=== PATIENT | male | born 1940 | race Caucasian/White ===

== ENCOUNTER 2023-10-27 17:05 | Inpatient (IN) | payer OTHER, SELFPAY ==
[2023-10-27 17:22] VITALS: BP 187/62
[2023-10-27 17:23] VITALS: BMI 31.8
--- NOTE | 2023-10-27 17:34 | HPS.HSE ---
Family Physician
-
Family Physician: Les Ga
Chief Complaint
-
abnormal labs
History of Present Illness
83-year-old male, followed by Dr. Ben Herrera ([facility]), was transferred to [facility] for CABG evaluation on 10/27/2023. Patient was initially admitted to [facility] on 10/22/2023 for evaluation of abnormal
labs (creatinine of 2.48 and potassium of 6.8), ordered by PCP to evaluate patient report of intermittent diarrhea x 4 weeks. Patient was diagnosed with dehydration and his home dose of losartan and Aldactone were held. An ultrasound of the kidneys
on 10/22 was negative for hydronephrosis or nephrolithiasis. Hydralazine was given for hypertension and patient had severe reaction including chest pain and flushing. BNP was 204 and troponin negative. A TTE performed on 10/24/2023 reported normal
ejection fraction and no significant valvular pathology. A Lexiscan conducted on 10/24 reported inferior apical ischemia and patient underwent a left heart cath on 10/26/[address] kulwinder Ndiaye. 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
patient was transferred to [facility]. Patient denies any similar chest pressure symptoms in the past. Creatinine on 10/26 was 1.68 and potassium was 5.2. Diarrhea subsided during his hospitalization. Patient recounts undergoing routine
colonoscopy and no cancerous lesions identified in the past. Patient denies history of kidney disease (although baseline creatinine is documented at 1.5) and losartan/Aldactone were not new medications.
Left Heart Cath (R radial) on 10/26/23:
Left main: 20% mid-distal
LAD: 70% ostial, proximal and mid
D1: 20-30% proximal�mid
Circumflex: 10-20% proximal�mid
OM1: atretic caliber
OM 2: 75% ostial and proximal
OM 3: 10-20% ostial
LPDA: 70-80% ostial�proximal
LPL 1 and 2 and 3: Atretic caliber
Torturous subclavian
TTE 10/24/23:
LVEF: 60%
Normal RV systolic function
No mitral regurgitation, tricuspid regurgitation or aortic stenosis. Mild aortic insufficiency. Aortic root is normal in size with no pericardial effusion
Medical History
Past Medical History
Past Medical History: Reports Cancer (Prostate cancer s/p radiation 5 years ago), HTN, Hypercholesterolemia and Other (Chronic kidney disease; osteoarthritis; cataracts; obesity (BMI 31.8))
Past Surgical History: Reports Orthopedic (Left total knee replacement) and Other (B/L cataract extraction)
Social History
Tobacco: Non-smoker
Alcohol: Occasional
Drug: None
Personal:
Living: With Family
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
Family History
Family History: Not pertinent
Allergies / Home Medications
Allergies reflects when Allergies were last updated in [facility].
Home Medications with original date entered in [facility]
Allergy/Medication List:
Hydralazine-chest pressure, flushing
IV contrast-hives
Home Medications
�Medication �Instructions �Recorded
amlodipine 10 mg tablet 10 mg PO DAILY 10/27/23
aspirin 81 mg capsule 81 mg PO DAILY 10/27/23
carvedilol 25 mg tablet 25 mg PO BID 10/27/23
losartan 100 mg tablet 100 mg PO DAILY 10/27/23
rosuvastatin 10 mg tablet 10 mg PO DAILY 10/27/23
spironolactone 25 mg tablet 25 mg PO DAILY 10/27/23
Review of Systems
-
History Source: Patient
Constitutional: Reports No Symptoms
EENT: Reports No Symptoms
Respiratory: Reports No Symptoms
Cardiac: Reports See HPI
Abdomen/GI: Reports See HPI
: Reports No Symptoms
Musculoskeletal: Reports No Symptoms
Skin: Reports No Symptoms
Neurological: Reports No Symptoms
Endocrine: Reports No Symptoms
Hematologic/Lymphatic: Reports No Symptoms
Psych: Reports No Symptoms
Physical Exam
Vital Signs
Vital Signs
Temp Resp Pulse Ox
98.6 F 20 97
10/27/23 17:22 10/27/23 17:22 10/27/23 17:22
Physical Exam
General: Well Developed, Well Nourished, No Apparent Distress, Comfortable, Conversant and Obese
HEENT: NormoCephalic, Anicteric, Moist mucous membranes, Atraumatic, PERRLA, [place] Conjunctivae, Ears Appear Normal and Neck Nontender
Respiratory: Clear
Cardiac: S1/S2 and Regular Rhythm
Breast: N/A
GI: Soft, Non Tender, Non Distended, Normal Bowel Sounds and No Hepatosplenomegaly
Rectal: Deferred by Provider
Genito-urinary: Deferred by me
Musculoskeletal: No Clubbing, No Cyanosis, Edema, Left Lower Extremity (trace) and Edema, Right Lower Extremity (trace)
Skin: Warm and Dry
Neuro: AO x 3, No Motor Deficits and Nonfocal/grossly intact
Hematologic/Lymphatic: No Lymphadenopathy
Psych: Calm and Intact Judgment/Insight
Laboratory Results
-
labs from [facility] reviewed
Data Reviewed
-
Medical Tests (Nuc Med, Echo, EKG etc): Report Reviewed by me and Discussed with Physician
Lab Data: Labs Reviewed by me and Discussed with Physician
Old Records: Reviewed
Impression/Plan
-
IMPRESSION: 83-year-old male with multivessel coronary disease, preserved ejection fraction, CUCO on CKD, and hyperkalemia
PLAN:
Left heart cath disc loaded in CV synapse
Routine labs, ECG, chest x-ray, Carotid US, non-contrast CT chest, type and screen, A1c, and MRSA swab ordered
Dr. Anderson to review imaging and discuss timing of CABG with patient
Patient did not receive oral anticoagulants or DAPT therapy at [facility]
Continue to hold Aldactone and losartan
--- NOTE | 2023-10-27 17:46 | PTCARENOTE ---
Received pt to room from transport. Pt AAO x 3 slightly irritated from long transport ride. . SR on monitor. Room air 96%. Lungs clear bilaterally. Abdomen soft and non tender, states no issues voiding. Pulses palpable. No edema appreciated.
# 20 P placed in LT AC. Admission completed. CT ANIMAL CONTROL SPECIALIST in consulting with patient. Call jean w/in reach.
[2023-10-27 18:47] VITALS: BP 158/62
[2023-10-27 20:03] VITALS: BP 182/89
[2023-10-27] MEDS: COREG 25 MG PO (20:07)
[2023-10-27] MEDS: TYLENOL PO (20:09)
[2023-10-27 20:51] VITALS: BP 152/50
[2023-10-27 23:06] VITALS: BP 122/61
--- NOTE | 2023-10-28 00:53 | W.PN.CT ---
Today's Communication / Plan
-
-no significant issues overnight
-no drips. Denies any CP, SOB or any GI sxs
-sinus bradycardia down for high 30s-40s noted during sleep (on Coreg 25 bid)
-mild LE edema since started Norvasc for HTN
-has allergy to iv dye and hydralazine (treated at [facility] wtih Bendadryl and Medrol for anaphylactic reaction)
-follow K and Cr
-diarrhea has resolved, denies any gi issues currently
-evaluation for CABG is ongoing
Assessment / Plan
-
-mv-CAD- transferred from [facility] on 10/27/23 for evaluation for CABG. Currently, denies any CP or any sxs
Left Heart Cath (R radial) on 10/26/23:
Left main: 20% mid-distal
LAD: 70% ostial, proximal and mid
D1: 20-30% proximal�mid
: 10-20% proximal�mid
OM1: atretic caliber
OM 2: 75% ostial and proximal
OM 3: 10-20% ostial
LPDA: 70-80% ostial�proximal
LPL 1 and 2 and 3: Atretic caliber
Torturous subclavian
-recent CUCO/hyperkalemia in the setting of dehydration/ diarrhea for 3-4 weeks (?+ C.Diff noted in [facility] records). Diarrhea spontaneously resolved 1 week ago. CUCO/K improving
-An ultrasound of the kidneys on 10/22 was negative for hydronephrosis or nephrolithiasis.
-Losartan and Aldactone stopped
-Creatinine on 10/26 was 1.68 and potassium was 5.2-follow
-anaphylactic reaction to Hydralazine at [facility] - treated with iv Bendryl and Medrol pack
-allergy to iv dye
-HTN/HLD- on ASA, Coreg, Norvasc, and Crestor
-normal EF
TTE 10/24/23:
LVEF: 60%
Normal RV systolic function
No mitral regurgitation, tricuspid regurgitation or aortic stenosis. Mild aortic insufficiency. Aortic root is normal in size with no pericardial effusion
-prostate CA - s/p XRT
Discussed patient care with: Nursing and Care Team
Subjective
-
Date of Service: October 28, 2023
Objective Data
Vital Signs
Vital Signs
Temp Pulse Resp BP Pulse Ox
97.9 F 62 18 182/89 100
10/27/23 23:02 10/27/23 20:07 10/27/23 23:02 10/27/23 20:07 10/27/23 23:02
CT Intake/Output/Weight
10/27/23 10/27/23 10/28/23
06:59 18:59 06:59
Intake Total 240 / 240
Balance 240 / 240
SaO2: 100
Physical Exam
-
General: Awake and AOx3
Cardiovascular: Regular rate & rhythm, No Murmurs and No Rub
Respiratory: Clear
Extremities: Edema +1 (2+ DP b/l)
Data Reviewed
-
Lab Results: Results Reviewed
Medications: Active Meds Reviewed
ECG: Report Reviewed and Image Reviewed
[2023-10-28] MEDS: TYLENOL PO ×4 (03:56→23:41)
[2023-10-28 04:00] VITALS: BP 159/58; BMI 31.5
[2023-10-28 06:00] VITALS: BMI 31.5
[2023-10-28 06:25] LABS: % Basophils 0.2 % (0-2); % Eosinophils 1.6 % (0-6); % Immature Granulocytes 0.6 % (0-0.5); % Lymphocytes 11.9 % (20.5-51.1); % Monocytes 7.1 % (1.7-9.3); % Neutrophils 78.6 % (42.2-75.2); Absolute Eosinophils 0.2 10^3/uL (0-0.7); Absolute Immature Granulocytes 0.1 10^3/uL (0-0.05); Absolute Lymphocytes 1.4 10^3/uL (1.2-3.4); Absolute Monocytes 0.9 10^3/uL (0.1-0.6); Absolute Neutrophils 9.5 10^3/uL (1.4-6.5); Hematocrit 28.6 % (39.0-52.0); Hemoglobin 9.8 g/dL (13.0-18.0); Mean Corp Hgb Conc. 34.3 g/dL (33.0-37.0); Mean Corpuscular Hgb 30.9 pg (27.0-31.0); Mean Corpuscular Volume 90.2 fL (80.0-94.0); Mean Platelet Volume 10.9 fL (7.4-10.4); Nucleated Red Blood Cells % 0 % (-); Platelet Count 170 10^3/uL (130-400); Red Blood Cell Count 3.17 10^6/uL (4.70-6.10); Red Cell Dist. Width 12.7 % (11.5-14.5)
[2023-10-28 06:26] LABS: INR 1.17; PT 14.9 Sec (11.4-14.6)
[2023-10-28 06:28] LABS: ALT (SGPT) 21 U/L (0-50); AST (SGOT) 22 U/L (17-59); Albumin 3.2 g/dl (3.5-5.0); Alkaline Phosphatase 82 U/L (38-126); Blood Urea Nitrogen 42 mg/dl (9-20); Calcium 8.6 mg/dl (8.4-10.2); Carbon Dioxide 20 mmol/L (22-30); Chloride 109 mmol/L (98-107); Estimated Creatinine Clearance 42 ml/min; Glucose 96 mg/dl (70-99); Magnesium 1.6 mg/dl (1.6-2.3); Potassium 4.7 mmol/L (3.5-5.1); Sodium 134 mmol/L (135-145); Total Bilirubin 0.3 mg/dl (0.2-1.3); Total Protein 5.1 g/dl (6.3-8.2); eGFR 42.75
[2023-10-28 06:57] LABS: TSH 2.69 uIU/ml (0.47-4.68)
[2023-10-28 08:28] VITALS: BP 178/72
[2023-10-28] MEDS: ASPIR LOW (ENTERIC COATED) 81 MG PO (08:30)
[2023-10-28] MEDS: TYLENOL 650 MG PO ×3 (08:30→16:12)
[2023-10-28] MEDS: COREG 25 MG PO ×2 (08:31→19:30)
[2023-10-28] MEDS: CRESTOR 10 MG PO (08:31)
[2023-10-28] MEDS: NORVASC 10 MG PO (08:31)
[2023-10-28 09:25] LABS: Glycohemoglobin (HgbA1c) 5.8 % (4.0-5.6)
--- NOTE | 2023-10-28 09:30 | CON.CAR ---
Addendum entered and electronically signed by Bryce Amaya MD 10/28/23 10:12:
I saw and examined the patient.
The HRIS MANAGER or PA's note was reviewed and I agree with the note.
83-year-old male history of hypertension, hypercholesterolemia, CKD and prostate cancer who noted to have multivessel coronary disease and is transferred for CABG. Patient being assessed by Dr. Anderson/CT surgery. Patient reports that he had
intermittent diarrhea saw his PCP and was noted to have abnormal labs including CUCO. Patient suspected to be volume depleted. Due to issues with hypertension he had IV hydralazine and appeared to have an allergic reaction. He says he felt awful
felt that everything was swelling had some issues breathing and some chest discomfort. This prompted cardiac evaluation including an abnormal Lexiscan followed by catheterization which reveals severe multivessel coronary artery disease. Patient
has had no complaints of chest discomfort since hospitalization at [place]. He states he was not having any exertional chest discomfort at home he would have some shortness of breath after walking up a flight of stairs but had not noticed an
acute change. No orthopnea or lower extremity edema.
-Continue evaluation for CABG by CT surgery.
-Continue current medical therapy for hypertension.
-If recurrent chest discomfort would and IV nitro. Also could add nitrates if needed for additional blood pressure support.
-Monitor renal function creatinine 1.6.
-Monitor anemia.
Original Note:
Consultation
Consultation Request
Date/Time Consultation Requested: 10/27/23 6:50p
Date/Time Consultation Performed: 10/28/23 9a
Requesting Provider: PRINCE Jett
Performing Provider: PRINCE Lay for Dr. Amaya
Reason for Consultation: CABG evaluation, multivessel CAD on cath
Medical History
-
Chief Complaint: multivessel CAD on cath, transfer from [facility]
History of Present Illness:
Mr. Sue is an 83 yo male (known to Dr. Herrera at [facility]) with HTN, prostate cancer s/p XRT 5 years ago, HLD, CKD, OA and obesity, who was transferred to for CABG evaluation. He was admitted to [facility] 10/22/23 with intermittent diarrhea x 4 weeks,
dehydration and creatinine 2.48 and potassium 6.8. His outpatient Losartan and Aldactone were held. He received hydralazine for HTN while inpatient and had a severe allergic reaction with chest tightness, SOB and flushing. Therefore he had
cardiac evaluation with echo 10/24/23 with normal LVEF, no valve disease. Lexiscan 10/25/23: inferior, apical ischemia, then cath 10/26/23 [facility] Dr. Ndiaye showed multivessel CAD and he was transferred to for CABG evaluation. He denies any cardiac
symptoms now or previously.
Past Medical History
Past Medical History: Other (as above)
Past Surgical History: Other (left TKA, b/l cataracts)
Social History
Tobacco: Non-Smoker
Alcohol: Occasional (1 drink a month)
Drug: None
Personal:
Living: With Family
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
Family History
Family History: Reviewed & Not Pertinent
Allergies / Home Medications
Allergy/AdvReac Type Severity Reaction Status Date / Time
hydralazine Allergy Severe Anaphylaxis Verified 10/27/23 17:20
Iodinated Contrast Media Allergy Hives Verified 10/27/23 19:23
�Medication �Instructions �Recorded �Confirmed �Type
amlodipine 10 mg tablet 10 mg PO DAILY Blood Pressure 10/27/23 10/27/23 History
aspirin 81 mg capsule 81 mg PO DAILY Blood Clot 10/27/23 10/27/23 History
Prevention/Tx
carvedilol 25 mg tablet 25 mg PO BID Blood Pressure 10/27/23 10/27/23 History
losartan 100 mg tablet 100 mg PO DAILY Blood Pressure 10/27/23 10/27/23 History
rosuvastatin 10 mg tablet 10 mg PO DAILY High Cholesterol 10/27/23 10/27/23 History
spironolactone 25 mg tablet 25 mg PO DAILY Fluid 10/27/23 10/27/23 History
Retention/Swelling
Review of Systems
-
History Source: Patient
All other systems: Negative unless noted
Physical Exam
Vital Signs
Temp Pulse Resp BP Pulse Ox
98.4 F 67 18 178/72 95
10/28/23 08:27 10/28/23 08:31 10/28/23 04:00 10/28/23 08:31 10/28/23 08:27
Lab Results
10/28/23 05:58
10/28/23 05:58
Physical Exam
General: Well Developed, Well Nourished and No Apparent Distress
HEENT: Normocephalic, Anicteric and Moist Mucous Membranes
Respiratory: Clear and Non Labored Respirations
Cardiac: S1/S2 and Regular Rhythm
Breast: Deferred by me
GI: Soft, Non Tender, Non Distended and Normal Bowel Sounds
Rectal: Deferred by Provider
Genito-urinary: No Costovertebral Tender
Musculoskeletal: No Clubbing, No Cyanosis and No Edema
Skin: Warm and Dry
Neuro: AO x 3
Hematologic/Lymphatic: No Lymphadenopathy
Psych: Calm
Impression / Plan
-
CAD - multivessel disease on cath 10/26/23.
- asymptomatic.
- evaluation by CT surgery for CABG.
- continue ASA.
HTN - stable.
- on Coreg, Norvasc.
- holding Losartan and Aldactone for now.
- had severe allergic reaction to Hydralazine while at [facility]
HLD - on Crestor.
- check lipid profile.
CKD - creatinine 1.6 today.
- previously 2.48 at [facility] due to diarrhea/dehydration.
- holding Losartan and Aldactone.
- seems baseline creatinine is 1.5.
Obesity - chronic.
Data Reviewed
-
EKG: Tracing Personally Visualized and interpreted (sinus renu with blocked PACs 55 bpm)
Medical Tests (Nuc Med, Echo etc): Report Reviewed by me (echo 10/24/23 normal LVEF, no valve disease) and Other (Lexiscan 10/25/23: inferior apical ischemia. cath 10/26/23 [facility] Dr. Ndiaye: multivessel CAD)
Labs: Labs Reviewed by me
Old Records: Reviewed
--- NOTE | 2023-10-28 09:43 | PTCARENOTE ---
Assumed care of pt from night RN. Pt received awake and alert, Ox3. VSS, CM shows SB with occ PAC's. EKG repeated this am at Dr. Amaya's request, showed SB. Right wrist dsg CDI with normal CMS throughout limb. Pt being worked up for CVOR. He
denies any pain or discomfort, will continue to monitor closely.
--- NOTE | 2023-10-28 10:44 | W.PN.UPDATE ---
Update Note
Progress Note Update
CARDIAC SURGERY ATTENDING:
Mr. Carter Sue is a very pleasant 83-year-old gentleman who came to us as a transfer from [facility] for consideration for surgical coronary revascularization. He initially presented to that institution on October 22, 2023 secondary to diarrhea times
several weeks leading to dehydration and CUCO with hyperkalemia. He was being managed for that, and required a dose of hydralazine to address hypertension. He apparently had an adverse reaction to this hydralazine which led to hypotension and chest
pain. That prompted cardiac workup. An echocardiogram demonstrated no significant valvular heart disease and an LVEF of 60%. A stress demonstrated potential cardiac ischemia leading to a left heart catheterization. This left heart
catheterization demonstrated multivessel CAD and a left dominant coronary pattern.
I believe he will benefit from surgical coronary revascularization. I anticipate ANGIE to LAD, greater saphenous vein to OM 2, greater saphenous vein to upper branch of OM 3, and potential greater saphenous vein to L PDA (requires intraoperative
assessment). I have tentatively scheduled him for the OR this coming 10/31/2023.
I had a long conversation with Mr. Sue at bedside. We discussed his pathology, the proposed operative interventions, the associated periprocedural risks (, stroke, TX, arrhythmia, PNA, CUCO/F [elevated risk given recent CUCO] with potential
need for HD, bleeding, and infection), the expected in-hospital postprocedural course, and expected outpatient recovery. All questions were answered to the best of my abilities. The patient is agreeable to proceed.
Thank you for the opportunity to participate in the care of this kind gentleman.
Brandon Anderson MD
[phone]
--- NOTE | 2023-10-28 12:39 | CM ---
Reviewed chart. Met with Mr. Sue to review discharge plans. He states prior to admission he resides with his spouse in a two story home with two steps to enter. He states he has a full flight of steps to get to bedroom. He states he has a full
bathroom on each level. He states prior to admission he was independent with ambulation and adls. He states he currently is not using any DME. He states he has a rolling walker from knee surgery. He states he has a prescription plan. He states
his spouse will be home to assist in his care if needed. Medical work-up in progress. The discharge plan is to return home with his spouse and a home visit by the Cardiothoracic Transitional Care Nurse when medically stable.
We reviewed pre-op and post-op routines. Briefly reviewed the soap instructions. We also reviewed restrictions including sternal precautions and driving restrictions. Gave him the Cardiothoracic Surgery Educational Booklet. We discussed a home
visit by the Cardiothoracic Transitional Care Nurse. He is agreeable to a home visit. The plan is for CABG on Tuesday10/31/23.
[2023-10-28 12:43] VITALS: BP 153/57
[2023-10-28 13:09] LABS: Urine Albumin Negative (Neg - Trace); Urine Bilirubin Negative (Negative); Urine Character Clear (Clear); Urine Color Yellow; Urine Glucose Negative (Negative); Urine Ketone Negative (Negative); Urine Leukocyte Negative (Negative); Urine Nitrite Negative (Negative); Urine Occult Blood Negative (Negative); Urine Specific Gravity 1.015 (<1.030); Urine Urobilinogen Negative (Neg - 1+)
[2023-10-28 15:48] VITALS: BP 128/53
[2023-10-28 19:17] VITALS: BP 166/54
[2023-10-28 22:45] VITALS: BP 121/55
[2023-10-29] VITALS (7 sets, daily range): BP systolic 118–171; BP diastolic 48–73; BMI 31.5
--- NOTE | 2023-10-29 04:00 | W.PN.CT ---
Today's Communication / Plan
-
-no issues overnight, no complaints
-some bradycardia during sleep 40s-50s
-anemia preop - hg 9.8
-Cr trending up - 1.6 on 10/27 and 1.7 today - follow Cr and K
-current meds (Coreg, ASA, Crestor, Norvasc)
-tentatively scheduled for CABG with Dr. Anderson this coming 10/31/2023.
Assessment / Plan
-
-mv-CAD- transferred from [facility] on 10/27/23 for evaluation for CABG. Currently, denies any CP or any sxs
Left Heart Cath (R radial) on 10/26/23:
Left main: 20% mid-distal
LAD: 70% ostial, proximal and mid
D1: 20-30% proximal�mid
: 10-20% proximal�mid
OM1: atretic caliber
OM 2: 75% ostial and proximal
OM 3: 10-20% ostial
LPDA: 70-80% ostial�proximal
LPL 1 and 2 and 3: Atretic caliber
Torturous subclavian
-recent CUCO/hyperkalemia in the setting of dehydration/ diarrhea for 3-4 weeks (?+ C.Diff noted in [facility] records). Diarrhea spontaneously resolved 1 week ago. CUCO/K improving
-An ultrasound of the kidneys on 10/22 was negative for hydronephrosis or nephrolithiasis.
-Losartan and Aldactone stopped
-Creatinine on 10/26 was 1.68 and potassium was 5.2-follow
-anaphylactic reaction to Hydralazine at [facility] - treated with iv Bendryl and Medrol pack
-allergy to iv dye
-HTN/HLD- on ASA, Coreg, Norvasc, and Crestor
-normal EF
TTE 10/24/23:
LVEF: 60%
Normal RV systolic function
No mitral regurgitation, tricuspid regurgitation or aortic stenosis. Mild aortic insufficiency. Aortic root is normal in size with no pericardial effusion
-prostate CA - s/p XRT
-Carotid US 10/28/23:
No significant plaque identified bilaterally. Peak systolic velocity measurements and IC/CC ratio consistent with less than 50% stenosis bilaterally. High resistance waveforms (low end-diastolic velocity) were demonstrated bilaterally which may
suggest a more distal stenosis.
-Chest CT 10/28/23:
Thoracic aorta normal in caliber with calcific atherosclerotic changes of the thoracic aortic arch and descending thoracic aorta.
Coronary artery calcifications.
-CXR 10/28/23:
no acute dz
Discussed patient care with: Nursing and Care Team
Subjective
-
Date of Service: October 29, 2023
Objective Data
-
PT 14.9 Sec (11.4-14.6) H 10/28/23 05:58
INR 1.17 10/28/23 05:58
APTT 27.0 Sec (23.4-35.0) 10/28/23 05:58
Vital Signs
Vital Signs
Temp Pulse Resp BP Pulse Ox
98.3 F 51 16 121/55 95
10/29/23 03:23 10/28/23 22:45 10/29/23 03:23 10/28/23 22:45 10/29/23 03:[address] Intake/Output/Weight
10/28/23 10/28/23 10/29/23
06:59 18:59 06:59
Intake Total 240 / 240
Output Total 700 / 700
Balance -460 / -460
SaO2: 95
Physical Exam
-
General: Awake
Cardiovascular: Regular rate & rhythm, No Murmurs and No Rub
Respiratory: Clear
Extremities: Edema +1
Data Reviewed
-
Lab Results: Results Reviewed
Medications: Active Meds Reviewed
Chest X-Ray: Report Reviewed and Image Reviewed
ECG: Report Reviewed and Image Reviewed
[2023-10-29 04:45] LABS: Hematocrit 27.1 % (39.0-52.0); Hemoglobin 9.3 g/dL (13.0-18.0); Mean Corp Hgb Conc. 34.3 g/dL (33.0-37.0); Mean Corpuscular Hgb 29.8 pg (27.0-31.0); Mean Corpuscular Volume 86.9 fL (80.0-94.0); Mean Platelet Volume 10.5 fL (7.4-10.4); Platelet Count 179 10^3/uL (130-400); Red Blood Cell Count 3.12 10^6/uL (4.70-6.10); Red Cell Dist. Width 12.8 % (11.5-14.5); White Blood Cell Count 8.1 10^3/uL (4.8-10.8)
[2023-10-29 05:16] LABS: Blood Urea Nitrogen 46 mg/dl (9-20); Calcium 8.5 mg/dl (8.4-10.2); Carbon Dioxide 19 mmol/L (22-30); Chloride 107 mmol/L (98-107); Estimated Creatinine Clearance 40 ml/min; Glucose 94 mg/dl (70-99); Magnesium 1.5 mg/dl (1.6-2.3); Potassium 4.8 mmol/L (3.5-5.1); Sodium 133 mmol/L (135-145); eGFR 39.75
[2023-10-29] MEDS: TYLENOL PO ×6 (05:42→23:23)
--- NOTE | 2023-10-29 06:27 | PTCARENOTE ---
Pt. had no complaints of chest pain/discomfort overnight, VSS, NSR-SB on the monitor. Pt. independent and ambulatory in room, very pleasant. Sleeping most of the night.
[2023-10-29] MEDS: NORVASC 10 MG PO (07:48)
[2023-10-29] MEDS: COREG 25 MG PO ×2 (07:48→20:14)
[2023-10-29] MEDS: CRESTOR 10 MG PO (07:48)
[2023-10-29] MEDS: ASPIR LOW (ENTERIC COATED) 81 MG PO (07:48)
--- NOTE | 2023-10-29 08:00 | PTCARENOTE ---
Received patient for 7a-7p shift. Pt AAOx3, without complaints. 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 Medications administered as ordered. Pt verbalized understanding of fall precautions, demonstrates use of call pena. Will continue to monitor.
--- NOTE | 2023-10-29 08:15 | W.PN.UPDATE ---
Update Note
Progress Note Update
STS RISK SCORE
Procedure Type:�Isolated CABG
PERIOPERATIVE OUTCOME ESTIMATE %
Operative Mortality 2.66%
Morbidity & Mortality 11%
Stroke 0.727%
Renal Failure 4.44%
Reoperation 2.53%
Prolonged Ventilation 5.09%
Deep Sternal Wound Infection 0.121%
Long Hospital Stay (>14 days) 8.34%
Short Hospital Stay (<6 days)* 24.8%
Clinical Summary
Planned Surgery: Isolated CABG, Urgent, First cardiovascular surgery
Demographics: 83 year old, male, 100.6kg, 178cm, BMI: 31.8 kg/m�
Lab Values: Creatinine: 1.7 mg/dL, Hematocrit: 27.1%, WBC Count: 8.1 10�/�L, Platelet Count: 657564 cells/�L
Substance Abuse: Never smoker, Alcohol use: <=1 drink/week
Risk Factors / Comorbidities: Hypertension
Cardiac Status: NYHA Class II, Ejection Fraction = 60%
Coronary Artery Disease: 2 vessels diseased, Proximal LAD Stenosis >=70%, Unstable Angina
Valve Disease: Mild AR
--- NOTE | 2023-10-29 10:04 | W.PN.CD ---
Today's Communication / Plan
-
Overall stable continue current therapy.
Monitor hypertension
Monitor renal function
CT surgery assessment and progress
Patient has some mild edema he states he has had this with amlodipine in the past. Unclear if he had been off of it and then restarted during admit at [facility]. Continue to monitor edema
Impression / Plan
-
CAD - multivessel disease on cath 10/26/23.
- asymptomatic.
- evaluation by CT surgery for CABG.
- continue ASA.
HTN - stable.
- on Coreg, Norvasc.
- holding Losartan and Aldactone for now.
- had severe allergic reaction to Hydralazine while at [facility]
-Patient with mild lower extremity edema. He says he has had this with amlodipine in the past. Continue to monitor.
HLD - on Crestor.
- check lipid profile.
CKD - creatinine 1.7 improved since admit at [facility]. Continue to monitor.
- previously 2.48 at [facility] due to diarrhea/dehydration.
- holding Losartan and Aldactone.
- seems baseline creatinine is 1.5.
Obesity - chronic.
Physical Exam
Vital Signs/Labs
Vital Signs
Temp Pulse Resp BP Pulse Ox
98.5 F 60 18 118/58 95
10/29/23 07:46 10/29/23 08:00 10/29/23 07:46 10/29/23 07:49 10/29/23 07:46
10/28/23 10/29/23 10/30/23
06:59 06:59 06:59
Actual Weight 99.5 kg 99.5 kg
10/29/23 04:35
10/29/23 04:35
PT 14.9 Sec (11.4-14.6) H 10/28/23 05:58
INR 1.17 10/28/23 05:58
APTT 27.0 Sec (23.4-35.0) 10/28/23 05:58
Magnesium 1.5 mg/dl (1.6-2.3) L 10/29/23 04:35
TSH 2.69 uIU/ml (0.47-4.68) 10/28/23 05:58
Physical Exam
Constitutional: No acute distress
Cardiovascular: Rhythm & rate is regular
Respiratory: Respiratory effort normal
GI: Soft
Neuro/Psych: Alert
Data Reviewed
-
Date of Service: October 29, 2023
Medical Tests (PFT, Pathology etc): Discussed with Patient
[2023-10-29] MEDS: MAGNESIUM OXIDE 500 MG PO ×2 (10:20→20:14)
[2023-10-29 12:06] LABS: Reticulocyte Count 2.6 % (0.4-2.8)
[2023-10-29 13:54] LABS: Folate 7.8 ng/ml (2.76-20); Vitamin B12 627 pg/ml (239-931)
[2023-10-30] VITALS (9 sets, daily range): BP systolic 122–160; BP diastolic 55–63; BMI 31.3
[2023-10-30] MEDS: TYLENOL PO ×5 (04:12→21:22)
[2023-10-30 04:49] LABS: Hematocrit 27.7 % (39.0-52.0); Hemoglobin 9.6 g/dL (13.0-18.0); Mean Corp Hgb Conc. 34.7 g/dL (33.0-37.0); Mean Corpuscular Hgb 29.8 pg (27.0-31.0); Mean Platelet Volume 10.3 fL (7.4-10.4); Platelet Count 169 10^3/uL (130-400); Red Blood Cell Count 3.22 10^6/uL (4.70-6.10); Red Cell Dist. Width 12.6 % (11.5-14.5); White Blood Cell Count 8.4 10^3/uL (4.8-10.8)
[2023-10-30 05:03] LABS: Blood Urea Nitrogen 43 mg/dl (9-20); Calcium 8.5 mg/dl (8.4-10.2); Carbon Dioxide 21 mmol/L (22-30); Chloride 108 mmol/L (98-107); Estimated Creatinine Clearance 45 ml/min; Glucose 101 mg/dl (70-99); Magnesium 1.6 mg/dl (1.6-2.3); Potassium 4.7 mmol/L (3.5-5.1); Sodium 133 mmol/L (135-145); eGFR 46.19
[2023-10-30 05:11] LABS: Total Iron Binding Capacity 273 ug/dl (261-462)
--- NOTE | 2023-10-30 05:52 | W.PN.CT ---
Today's Communication / Plan
-
-no issues overnight, no complaints
-bradycardia during sleep 40s-50s
-anemia preop - hg 9.6, stable
-Cr trending down - 1.5, 1.7 yesterday - follow Cr and K
-current meds (Coreg, ASA, Crestor, Norvasc)
-tentatively scheduled for CABG with Dr. Anderson this coming 10/31/2023.
Assessment / Plan
-
-mv-CAD- transferred from [facility] on 10/27/23 for evaluation for CABG. Currently, denies any CP or any sxs
Left Heart Cath (R radial) on 10/26/23:
Left main: 20% mid-distal
LAD: 70% ostial, proximal and mid
D1: 20-30% proximal�mid
: 10-20% proximal�mid
OM1: atretic caliber
OM 2: 75% ostial and proximal
OM 3: 10-20% ostial
LPDA: 70-80% ostial�proximal
LPL 1 and 2 and 3: Atretic caliber
Torturous subclavian
-recent CUCO/hyperkalemia in the setting of dehydration/ diarrhea for 3-4 weeks (?+ C.Diff noted in [facility] records). Diarrhea spontaneously resolved 1 week ago. CUCO/K improving
-An ultrasound of the kidneys on 10/22 was negative for hydronephrosis or nephrolithiasis.
-Losartan and Aldactone stopped
-Creatinine on 10/26 was 1.68 and potassium was 5.2-follow
-anaphylactic reaction to Hydralazine at [facility] - treated with iv Bendryl and Medrol pack
-allergy to iv dye
-HTN/HLD- on ASA, Coreg, Norvasc, and Crestor
-normal EF
TTE 10/24/23:
LVEF: 60%
Normal RV systolic function
No mitral regurgitation, tricuspid regurgitation or aortic stenosis. Mild aortic insufficiency. Aortic root is normal in size with no pericardial effusion
-prostate CA - s/p XRT
-Carotid US 10/28/23:
No significant plaque identified bilaterally. Peak systolic velocity measurements and IC/CC ratio consistent with less than 50% stenosis bilaterally. High resistance waveforms (low end-diastolic velocity) were demonstrated bilaterally which may
suggest a more distal stenosis.
-Chest CT 10/28/23:
Thoracic aorta normal in caliber with calcific atherosclerotic changes of the thoracic aortic arch and descending thoracic aorta.
Coronary artery calcifications.
-CXR 10/28/23:
no acute dz
Subjective
-
Date of Service: October 30, 2023
Objective Data
-
Lab Results
10/30/23 04:24
10/30/23 04:23
PT 14.9 Sec (11.4-14.6) H 10/28/23 05:58
INR 1.17 10/28/23 05:58
APTT 27.0 Sec (23.4-35.0) 10/28/23 05:58
Vital Signs
Vital Signs
Temp Pulse Resp BP Pulse Ox
98.1 F 56 18 154/58 97
10/30/23 04:03 10/30/23 04:05 10/30/23 04:03 10/30/23 04:05 10/30/23 04:03
CT Intake/Output/Weight
10/29/23 10/29/23 10/30/23
06:59 18:59 06:59
Intake Total 480 / 480 360 / 840 480 / 840
Balance 480 / 480 360 / 840 480 / 840
SaO2: 97
Physical Exam
-
General: AOx3
Cardiovascular: Irregular rate & rhythm (bradycardic but regular)
Respiratory: Clear
Extremities: Edema +1
[2023-10-30] MEDS: NORVASC 10 MG PO (08:48)
[2023-10-30] MEDS: COREG 25 MG PO ×2 (08:49→20:14)
[2023-10-30] MEDS: CRESTOR 10 MG PO (08:49)
[2023-10-30] MEDS: ASPIR LOW (ENTERIC COATED) 81 MG PO (08:49)
[2023-10-30] MEDS: MAGNESIUM OXIDE 500 MG PO ×2 (08:49→20:14)
--- NOTE | 2023-10-30 08:57 | W.PN.CD ---
Today's Communication / Plan
-
Overall stable with no evidence of angina continue CT surgery evaluation.
Reduction of amlodipine due to edema may ultimately need to stop. Sounds as if he has had issues before however ARB also being held. If additional blood pressure control required then nitrates can be added preop.
Impression / Plan
-
CAD - multivessel disease on cath 10/26/23.
- asymptomatic.
- evaluation by CT surgery for CABG.
- continue ASA.
HTN - stable.
- on Coreg, Norvasc.
- holding Losartan and Aldactone for now.
- had severe allergic reaction to Hydralazine while at [facility]
-Patient with mild lower extremity edema. It sounds as if he was on amlodipine in the past it had been stopped and then resumed during hospitalization at [facility]. He does have mild lower extremity edema. Of note he had an allergic reaction
to hydralazine. Will reduce amlodipine to 5 mg a day will need to monitor blood pressures. If blood pressure increases preoperatively can add nitrates. Ultimately post operatively would try to resume ARB if renal function stable and would
consider use of Diovan or Benicar rather than losartan which may give a little more blood pressure control.
.
HLD - on Crestor.
- check lipid profile.
CKD - creatinine 1.7 improved since admit at H. Continue to monitor.
- previously 2.48 at [facility] due to diarrhea/dehydration.
- holding Losartan and Aldactone.
- seems baseline creatinine is 1.5.
Obesity - chronic.
Physical Exam
Vital Signs/Labs
Vital Signs
Temp Pulse Resp BP Pulse Ox
98.2 F 60 16 137/57 98
10/30/23 08:01 10/30/23 08:49 10/30/23 08:01 10/30/23 08:49 10/30/23 08:01
10/29/23 10/30/23 10/31/23
06:59 06:59 06:59
Actual Weight 99.1 kg
10/30/23 04:24
10/30/23 04:23
PT 14.9 Sec (11.4-14.6) H 10/28/23 05:58
INR 1.17 10/28/23 05:58
APTT 27.0 Sec (23.4-35.0) 10/28/23 05:58
Magnesium 1.6 mg/dl (1.6-2.3) 10/30/23 04:23
TSH 2.69 uIU/ml (0.47-4.68) 10/28/23 05:58
Physical Exam
Constitutional: No acute distress
EENT: Anicteric
Cardiovascular: Rhythm & rate is regular
Respiratory: Respiratory effort normal
GI: Soft
Neuro/Psych: Alert
Data Reviewed
-
Date of Service: October 30, 2023
Medical Decision Making: Reviewed Test Results
Medical Tests (PFT, Pathology etc): Report Reviewed by me
Labs: Labs Reviewed by me
--- NOTE | 2023-10-30 10:40 | PTCARENOTE ---
received this pleasant patient this am, monitor shows NSR/SB, VSS. blood work obtained and sent to lab. reviewed plan of care, patient despot have questions at this time.
--- NOTE | 2023-10-30 13:13 | W.PN.UPDATE ---
Update Note
Progress Note Update
PRE-OP STUDIES
CUS: <50% B/L
EKG: SB @ 55BPM
CT: ok
UA: negative
CXR:�mild elevation R hemidiaphragm
83-year-old male, followed by Dr. Ben Herrera ([facility]), was transferred to [facility] for CABG evaluation on 10/27/2023 due to multivessel coronary disease noted on cardiac cath 10/26/23. Hyperkalemia noted on admission
at [facility] has now normalized to 4.7. Creatinine has stabilized to 1.5. Hb 9.6 up from 9.3 with iron studies WNL. No prior history of anemia per patient.
A/P: multivessel CAD with preserved LVEF (60%)
-Consent signed
-Anesthesia consult on chart
-T&S (10/29): O pos
-2PRBC on hold for OR
-Sherri-op Ancef ordered
-Coreg 25mg x 1 pre-op in AM
--- NOTE | 2023-10-30 14:05 | PTCARENOTE ---
Assumed care of patient. Agree with previous assessment. Call light in reach, VSS. Reviewed plan of care with patient. Will continue to monitor.
[2023-10-30] MEDS: FLUSH (NSS) 1 FLUSH IV (20:20)
[2023-10-31] VITALS (19 sets, daily range): BP systolic 95–156; BP diastolic 48–73; BMI 31.3
[2023-10-31] MEDS: TYLENOL PO ×5 (01:38→15:44)
--- NOTE | 2023-10-31 03:44 | PTCARENOTE ---
Assumed care of pt at 1900, pt on traffic monitor specialist in NSR with HR in the 50-60's. Denies any pain or chest discomfort. Ambulating in room by self without difficulty. First round of prep completed and bed linens changes. Pt aware of NPO status and
agreed to report any pain if present. Pt with call pena in reach. Plan of care ongoing.
[2023-10-31 05:22] LABS: Hematocrit 28.1 % (39.0-52.0); Hemoglobin 9.8 g/dL (13.0-18.0); Mean Corp Hgb Conc. 34.9 g/dL (33.0-37.0); Mean Corpuscular Hgb 31.2 pg (27.0-31.0); Mean Corpuscular Volume 89.5 fL (80.0-94.0); Mean Platelet Volume 10.6 fL (7.4-10.4); Platelet Count 173 10^3/uL (130-400); Red Blood Cell Count 3.14 10^6/uL (4.70-6.10); Red Cell Dist. Width 12.6 % (11.5-14.5); White Blood Cell Count 8.4 10^3/uL (4.8-10.8)
[2023-10-31] MEDS: PROTONIX 40 MG PO (05:37)
[2023-10-31] MEDS: MAGNESIUM OXIDE 500 MG PO (05:37)
[2023-10-31] MEDS: COREG 25 MG PO (05:37)
[2023-10-31] MEDS: BACTROBAN 2% OINTMENT 1 APPLIC NASAL ×2 (05:38→20:12)
[2023-10-31 05:43] LABS: Blood Urea Nitrogen 35 mg/dl (9-20); Calcium 8.7 mg/dl (8.4-10.2); Carbon Dioxide 23 mmol/L (22-30); Chloride 106 mmol/L (98-107); Estimated Creatinine Clearance 45 ml/min; Glucose 100 mg/dl (70-99); Magnesium 1.8 mg/dl (1.6-2.3); Potassium 4.6 mmol/L (3.5-5.1); Sodium 134 mmol/L (135-145); eGFR 46.19
[2023-10-31 07:13] LABS: Urine Albumin Negative (Neg - Trace); Urine Bilirubin Negative (Negative); Urine Character Clear (Clear); Urine Color Yellow; Urine Glucose Negative (Negative); Urine Ketone Negative (Negative); Urine Leukocyte Negative (Negative); Urine Nitrite Negative (Negative); Urine Occult Blood 1+ (Negative); Urine Urobilinogen Negative (Neg - 1+)
[2023-10-31 07:25] LABS: ACT+ - POC 93 Seconds (82-134)
--- NOTE | 2023-10-31 08:20 | CM ---
Reviewed chart. Mr. Sue is inthe operating room today. Prior to admission he resides with his spouse in a two story home with two steps to enter. He has a full flight of steps to get to bedroom. He has a full bathroom on each level. Prior to
admission he was independent with ambulation and adls. He currently is not using any DME. He has a roling walker from previous knee surgery. He has a prescription plan and uses [facility]. Medical work-up in progress. The discharge plan is to
return home with his spouse and a home visit by the Cardiothoracic Transitional Care Nurse when medically stable.
[2023-10-31 09:08] LABS: Urine Amorphous Seen; Urine Squamous Cell 0-2 /LPF (Few)
[2023-10-31 09:10] LABS: Urine Mucus Few; Urine Red Blood Cell 0-2 /HPF (0-2); Urine Urothelial Cell 0-2 /LPF (FEW); Urine White Cell 0-2 /HPF (0-5)
[2023-10-31 10:14] LABS: B.E. - POC -2.6 mmol/L; Glucose - POC 109 mg/dl (65-99); HCO3 - POC 22 mmol/L (21-29); Hematocrit - POC 25 % PCV (42-52); Hemodilution- POC No; Hemoglobin Calculated - POC 8.4; Ionized Calcium - POC 1.25 mmol/L (1.12-1.27); O2 Saturation %Calculated-POC 99.7 5 (92-96); PCO2 - POC 38 mmHg (35-45); PO2 - POC 211 mmHg (80-100); POC Comment PRE; Potassium - POC 4.2 mmol/L (3.6-5.0); Sodium - POC 135 mmol/L (135-145); pH - POC 7.37 (7.35-7.45)
[2023-10-31 10:34] LABS: ACT+ - POC 933 Seconds (82-134)
[2023-10-31 11:03] LABS: Glucose - POC 115 mg/dl (65-99); HCO3 - POC 29 mmol/L (21-29); Hematocrit - POC 21 % PCV (42-52); Hemodilution- POC Yes; Hemoglobin Calculated - POC 7.1; Ionized Calcium - POC 0.97 mmol/L (1.12-1.27); PCO2 - POC 47 mmHg (35-45); PO2 - POC 513 mmHg (80-100); POC Comment CPB; Potassium - POC 5.6 mmol/L (3.6-5.0); Sodium - POC 138 mmol/L (135-145)
[2023-10-31 11:18] LABS: ACT+ - POC 674 Seconds (82-134)
[2023-10-31 11:32] LABS: B.E. - POC 2.2 mmol/L; Glucose - POC 142 mg/dl (65-99); HCO3 - POC 25 mmol/L (21-29); Hematocrit - POC 25 % PCV (42-52); Hemodilution- POC Yes; Hemoglobin Calculated - POC 8.5; Ionized Calcium - POC 1.01 mmol/L (1.12-1.27); PCO2 - POC 30 mmHg (35-45); PO2 - POC 347 mmHg (80-100); POC Comment WARM; Potassium - POC 5.8 mmol/L (3.6-5.0); Sodium - POC 138 mmol/L (135-145); pH - POC 7.52 (7.35-7.45)
[2023-10-31 11:51] LABS: ACT+ - POC 694 Seconds (82-134)
[2023-10-31 12:21] LABS: B.E. - POC 1.2 mmol/L; Glucose - POC 177 mg/dl (65-99); HCO3 - POC 26 mmol/L (21-29); Hematocrit - POC 27 % PCV (42-52); Hemodilution- POC Yes; Hemoglobin Calculated - POC 9.3; Ionized Calcium - POC 1.05 mmol/L (1.12-1.27); O2 Saturation %Calculated-POC 99.9 5 (92-96); PCO2 - POC 38 mmHg (35-45); PO2 - POC 241 mmHg (80-100); POC Comment CPB; Potassium - POC 5.6 mmol/L (3.6-5.0); Sodium - POC 136 mmol/L (135-145); pH - POC 7.44 (7.35-7.45)
[2023-10-31 12:25] LABS: ACT+ - POC 104 Seconds (82-134)
[2023-10-31 12:25] LABS: B.E. - POC -1.7 mmol/L; Glucose - POC 116 mg/dl (65-99); HCO3 - POC 23 mmol/L (21-29); Hematocrit - POC 27 % PCV (42-52); Hemodilution- POC Yes; Hemoglobin Calculated - POC 9.1; Ionized Calcium - POC 1.16 mmol/L (1.12-1.27); O2 Saturation %Calculated-POC 99.8 5 (92-96); PCO2 - POC 36 mmHg (35-45); PO2 - POC 237 mmHg (80-100); POC Comment POST; Potassium - POC 4.3 mmol/L (3.6-5.0); Sodium - POC 140 mmol/L (135-145); pH - POC 7.41 (7.35-7.45)
--- NOTE | 2023-10-31 12:47 | W.CVOR.SURPR ---
CVOR Surgeon Immed Pre Op
-
I have examined this patient prior to performance of the scheduled procedure.
The patient's condition is unchanged from the time of the dictated/written History and
Physical and the patient is able to undergo the scheduled procedure.
--- NOTE | 2023-10-31 12:47 | W.IMMPOSTOP ---
Addendum entered and electronically signed by Brandon Anderson MD 10/31/23 14:11:
[id number]
Original Note:
Surgical Immed Post Op Note
-
CARDIAC SURGERY OPERATIVE NOTE:
Preoperative Dx:
MVCAD
Postoperative Dx:
Same
Procedures:
1) Median sternotomy
2) Takedown of ANGIE
3) Endoscopic harvest/prep of RLE GSV
4) CABG x 4 (ANGIE to LAD, GSV to OM2, sGSV to OM3 to LPDA)
Surgeon:
Brandon Anderson M.D.
Assistants:
Socorro AtkinsonARajani-CRajani; endoscopic harvest/prep of RLE GSV, field administrative assistant throughout, closure ([id number])
Socorro GuillermoA.-CRajani; prep of RLE GSV, closure of RLE incisions, chest closure ([id number])
Anesthesia:
Andre Sierra M.D. and Go Kinney, C.R.N.A.
Perfusion:
Dorina RiosC.P.; XC: 82min, CPB: 123min
Findings:
ANGIE was healthy appearing vessel w/ brisk blood flow; ELD 2.25mm
GSV was healthy appearing conduit w/ exception of the proximal 7cm segment which was not utilized
LAD was visible on the epicardial surface, scattered calcifications, ELD 2.75mm w/ healthy carrillo at midpoint anastomosis
OM2 was visible on the epicardial surface, scattered calcifications, serpentine course, ELD 2.5mm w/ healthy carrillo at anastomosis
OM3 was visible on the epicardial surface, scattered calcifications, serpentine course, ELD 2.5mm w/ healthy carrillo at anastomosis
LPDA was visible on the epicardial surface, scattered calcifications, serpentine course, ELD 2.5mm w/ healthy carrillo at anastomosis
Excellent flow in all grafts on intraoperative transit time U/S flow probe assessment & visually w/ ANGIE-to-LAD
POST-JONY: LVEF 55%, mild MR, mild-to-mod AI, mild PI
Complications:
None
Implants:
CT x 4 (B/L pleural, inferior mediastinal, superior mediastinal)
Epicardial V-wire x 1; Skin ground wire x 1 (placed secondary to baseline bradycardia in 40s) - pacing not required
Sternal wires x 7
Sternal square plates x 2 (4 - 12mm; 4 - 10mm screws)
Condition:
59 sinus w/ isoelectric STs, 122/50. CVP 13. 99%
GTTS: levophed 3, precedex 0.5, insulin 0.5
Stable/guarded to CVICU
--- NOTE | 2023-10-31 13:08 | CON.INTV ---
Consultation
Consultation Request
Date/Time Consultation Requested: 10/31/2023 - 1230
Date/Time Consultation Performed: 10/31/2023 - 1301
Requesting Provider: PRINCE Jett
Performing Provider: Leonard Hadley MD
Reason for Consultation: s/p CABG
Medical History
-
Chief Complaint: Elective CABG
History of Present Illness:
83-year-old male non-smoker with a past medical history of hypertension, hyperlipidemia, borderline DM and prostate cancer s/p XRT who presented from outside hospital ([facility]) for evaluation of CABG. Patient initially admitted to
[facility] on 10/22/2023 due to elevated creatinine and hyperkalemia (2.48, 6.8, respectively). These labs ordered due to intermittent diarrhea for 4 weeks. During hospitalization hydralazine was given hypertension and patient developed chest pain with
flushing. TTE done on 10/24/2023 showed preserved LVEF with no significant valvular pathology. Lexiscan stress test on 10/25/2023 showed inferior apical ischemia and then a LHC performed on 10/26/2023 showed multivessel CAD. Patient is now here
earlier in the hospital for CABG evaluation. Of note, his creatinine and potassium have both improved (1.5, 4.6 respectively). Today the patient underwent CABG x 4, with chest tubes x 4 placed (bilateral pleural, inferior mediastinal + superior
mediastinal). Epicardial V wires placed but pacing not required. Upon transfer to CVICU patient was on Levophed at 3 mcg/min, Precedex 0.5 mcg/kg/hr and insulin at 0.5 units/hr. Critical care services now consulted for additional
management/recommendations.
When [place] saw [place] [address]/50%/5, breathing at 12 breaths/min, with PIP at 20 cmH2O and VTe at 472 mL. He was saturating 97%, heart rate 65, BP 128/50 (via right radial A-line), and BP via NIBP was 107/61.
PMHx: Hypertension, hyperlipidemia, prostate cancer, cataracts, borderline diabetes, arthritis
PSHx: s/p prostate radiation + cataract surgery
Past Medical History
Past Medical History: Other (Above as per HPI)
Past Surgical History: Other (Above as per HPI)
Social History
Tobacco: Non-smoker
Alcohol: Occasional
Drug: None
Personal:
Living: With Family
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
Family History
Family History: Hypertension (Father)
Allergies / Home Medications
Allergies
Allergy/AdvReac Type Severity Reaction Status Date / Time
hydralazine Allergy Severe Anaphylaxis Verified 10/27/23 17:20
Iodinated Contrast Media Allergy Hives Verified 10/27/23 19:23
Home Medications
�Medication �Instructions �Recorded �Confirmed �Last Taken �Type
amlodipine 10 mg tablet 10 mg PO DAILY Blood Pressure 10/27/23 10/27/23 10/27/23 08:00 History
aspirin 81 mg capsule 81 mg PO DAILY Blood Clot 10/27/23 10/27/23 10/27/23 08:00 History
Prevention/Tx
carvedilol 25 mg tablet 25 mg PO BID Blood Pressure 10/27/23 10/27/23 10/27/23 08:00 History
losartan 100 mg tablet 100 mg PO DAILY Blood Pressure 10/27/23 10/27/23 10/21/23 08:00 History
rosuvastatin 10 mg tablet 10 mg PO DAILY High Cholesterol 10/27/23 10/27/23 10/21/23 08:00 History
spironolactone 25 mg tablet 25 mg PO DAILY Fluid 10/27/23 10/27/23 10/21/23 08:00 History
Retention/Swelling
Review of Systems
-
Unable to Obtain full review of systems at this time due to: Patient Intubation
Vitals / Labs / Diagnostic Testing
Vital Signs
Temp Pulse Resp BP Pulse Ox
97.6 F 59 10 156/56 97
10/31/23 13:19 10/31/23 06:30 10/31/23 13:19 10/31/23 05:37 10/31/23 13:23
Lab Data
10/31/23 13:18
Laboratory Results
10/31/23
13:18
PT 18.4 H
INR 1.55
APTT 30.8
pH 7.35
pCO2 44
pO2 109 H
HCO3 24.3
O2 Delivery Level Not Reportable
Microbiology
10/27/23 17:46 Nose MRSA Screen - Final
No Methicillin Resistant Staphylococcus aureus isolated.
Diagnostic Testing:
Physical Exam
-
HEENT: Normocephalic, Anicteric and Other (ETT in place)
Cardiovascular: S1/S2 and Peripheral Edema (Trace LE pitting edema b/l)
Respiratory: Wheeze (Negative), Rales (Negative), Rhonchi (Negative), Non-Labored Respirations and Other (Mechanical breath sounds heard bilaterally)
GI: Soft, Non Distended, Non Tender and Normal Bowel Sounds
Neurology: Tremors (Negative) and Other (Sedated)
Skin: Warm and Dry
General: Comfortable, Chills (Negative) and Sweats (Negative)
Assessment
-
Assessment: 83-year-old male non-smoker with a past medical history of hypertension, hyperlipidemia, borderline DM and prostate cancer s/p XRT who presented from outside hospital ([facility]) for evaluation of CABG. Patient initially
admitted to [facility] on 10/22/2023 due to elevated creatinine and hyperkalemia (2.48, 6.8, respectively). These labs ordered due to intermittent diarrhea for 4 weeks. During hospitalization hydralazine was given hypertension and patient developed chest
pain with flushing. TTE done on 10/24/2023 showed preserved LVEF with no significant valvular pathology. Lexiscan stress test on 10/25/2023 showed inferior apical ischemia and then a LHC performed on 10/26/2023 showed multivessel CAD. Patient is now
here earlier in the hospital for CABG evaluation. Of note, his creatinine and potassium have both improved (1.5, 4.6 respectively). On 10/31/2023 the patient underwent CABG x 4, with chest tubes x 4 placed (bilateral pleural, inferior mediastinal +
superior mediastinal). Epicardial V wires placed but pacing not required. Upon transfer to CVICU patient was on Levophed at 3 mcg/min, Precedex 0.5 mcg/kg/hr and insulin at 0.5 units/hr. Critical care services now consulted for additional
management/recommendations.
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
Impression:
#MV�CAD s/p CABG x 4 (POD#0)
#CUCO
#Anemia
#Thrombocytopenia
Plan:
Ventilator settings reviewed
FiO2 will be weaned
Minute ventilation will be adjusted
Arterial blood gases will be monitored
Spontaneous breathing trial will be attempted with hopeful extubation after anesthesia/sedation wear off
prn nebulized bronchodilators
Pressors/antihypertensive/inotropes/diuretics will be provided as needed
Maintain MAP>65
Replete electrolytes with K>4, Mg>2
Monitor chest tubes' output
Monitor hemoglobin
Monitor platelet count and coags
Transfuse blood product if needed to maintain Hb>7-8g/dL, plt>50k (given patient's post-operative status)
CT surgery managing chest tubes x4
Monitor blood sugar to maintain euglycemia with goal BG 140-180
Insulin drip per protocol
Aspiration precautions
VAP prevention protocol
DVT prophylaxis
Early nutrition
Early mobilization
Critical care statement: A total of 38 minutes of critical care time was provided for this patient today. This includes management of ventilator, spontaneous breathing trial, arterial blood gases, pressors, of unstable vital signs, evaluation of the
patient at bedside, reviewing the patient's pertinent medical records including radiographs, microbiology, laboratory evaluations, and discussion with primary team and critical care nursing.
[2023-10-31 13:19] LABS: Glucose - Point of Care 103 mg/dl (70-99)
[2023-10-31 13:29] LABS: ACT+ - POC > 1003 Seconds (82-134)
[2023-10-31 13:30] LABS: Hematocrit 26.1 % (39.0-52.0); Hemoglobin 9.1 g/dL (13.0-18.0); Platelet Count 131 10^3/uL (130-400)
[2023-10-31 13:34] LABS: B.E. -1.4 mmol/L; HCO3 24.3 mmol/L (21-28); Ionized Calcium 1.17 mMOL/L (1.15-1.33); O2 Saturation % 99.3 % (94-98); PCO2 44 mmHg (35-48); PO2 109 mmHg (83-108); Potassium 4.5 mMOL/L (3.5-5.1); Sodium 136 mMOL/L (136-145); pH 7.35 (7.35-7.45)
--- NOTE | 2023-10-31 13:34 | W.PN.UPDATE ---
Update Note
Progress Note Update
83-year-old male, followed by Dr. Ben Herrera ([facility]), was transferred to [facility] for CABG evaluation on 10/27/2023 due to multivessel coronary disease noted on cardiac cath 10/26/23. Hyperkalemia noted on admission
at [facility] normalized and Creatinine stabilized to 1.5.
IV fluids: 1200
U.O.:� 250
UF:� 2500
Blood:� 2PRBC
Wires:� V & ground wire
Gtts: Levophed @ 3, Precedex @ 0.5, Insulin
�
NEURO: sedated on Precedex, pupils +2mm B/L
RESP: #8OT @24cm> 500/60%/14/5. Lungs clear B/L. 2 mediastinal (10cc on arrival) and R/L pleural (10cc on arrival) chest tubes to -20cm suction. Sanguineous drainage
CV: RRR +S1, S2, no S3, no�rub, no murmur. Dermabond to median sternotomy. RIJ w/Clements intact
ABD: obese, round, soft, no BS
EXT: +1 B/L tibial edema, +2/4 DP pulses B/L, no femoral bruit, RLE ANU wrap intact; right radial A-line intact
: Painting with clear yellow urine
�
A/P: POD #0 s/p CABG x 4 (ANGIE to LAD, GSV to OM2, sGSV to OM3 and LPDA)
JONY: EF�55%. Mild to moderate AI. Mild PI. Mild MR
- wean Levophed, wean to 40% FiO2 and extubate
# CAD
- will require ASA/Plavix, statin and beta roshan (on Crestor, Coreg pre-op)
�
# acute surgical blood loss anemia on pre-existing chronic anemia
- received 2PRBC intra-op>Hb now 9.1
- FeSO4 daily
- trend CBC
# CUCO on CKD IIIa
- Losartan, spironolactone on hold from [facility]
- trend UO/BMP
# HTN
- resume Amlodipine as BP permits
�
# Prediabetes (A1C 5.8)
- insulin infusion x 24h
- 1800cal diabetic, chol lowering diet
# Obesity (BMI 31.1)
- cardiac, carb controlled diet
�
[2023-10-31 13:36] LABS: INR 1.55; PT 18.4 Sec (11.4-14.6)
[2023-10-31 13:37] LABS: APTT 30.8 Sec (23.4-35.0)
--- NOTE | 2023-10-31 13:37 | PTCARENOTE ---
Pt received from CVOR at 1310; Sedated and intubated; NSR rhythm on monitor; Epicardial V-wire in place and box turned off; DP pulses on Doppler; Strong Radial pulses; Lungs diminished at bases; ETT size 8 and 23 at lip; Ventilator settings SIMV
500/12/5/5 FiO2 50%; CTx4 to -20 cm wall suction, no air leak, tidaling, or crepitus noted; Hypoactive BS; Painting catheter in place draining yellow urine; Sternal Midline Incision covered with aquacell dressing and CDI; Right leg wrapped in Get wrap
- CDI; Right A-line, RIJ Cordis/SLIC, and PIV X1 all lines zeroed and level; Levo, Precedex, and Insulin infusing see flow sheet for details; See nursing documentation for further details.
[2023-10-31 13:42] LABS: Blood Urea Nitrogen 33 mg/dl (9-20); Estimated Creatinine Clearance 48 ml/min; Glucose 93 mg/dl (70-99); Magnesium 2.7 mg/dl (1.6-2.3)
[2023-10-31 13:59] LABS: Glucose - Point of Care 130 mg/dl (70-99)
[2023-10-31] MEDS: CALCIUM CHLORIDE 10% SYRINGE 50 ML IV (14:04)
[2023-10-31] MEDS: CALCIUM CHLORIDE 10% SYRINGE 50 MG IV (14:04)
[2023-10-31] MEDS: NSS 500 IV (14:33)
[2023-10-31] MEDS: ANCEF 10 IV ×2 (14:34)
[2023-10-31] MEDS: CRESTOR PO (14:34)
[2023-10-31] MEDS: NEURONTIN PO ×2 (14:34→16:16)
--- NOTE | 2023-10-31 14:41 | W.PN.CD ---
Addendum entered and electronically signed by Geneva Hall MD 10/31/23 18:19:
I saw and examined the patient.
The COMPUTER BOOKKEEPER's note was reviewed and I agree with the note.
Comment: He is doing well immediately post op. He is off vasopressors and extubated. He is lethargic but awake with arousal. VSS, cta anteriorly, rrr, bear hugger in place. Continue typical post op day 0 care.
Original Note:
Today's Communication / Plan
-
Close post-op monitoring and care with weaning of vent and drips per CT surgery/CVICU protocol
Impression / Plan
-
CAD - multivessel disease on cath 10/26/23:
-now s/p CABG x 4 (ANGIE to LAD, GSV to OM2, sGSV to OM3 to LPDA), 10/31/23 Dr. Anderson
-s/p 2 units PRBC's
-intubated and ventilated post-op
-now off levophed
-CT's and Painting in place
-EKG and tele stable post-op SR (mild 1st degree AVB on EKG)- follow telemetry
-intra-op JONY: Overall LVEF is approximately 55% with no RWMA. Severe concentric left ventricular hypertrophy. Stage I Diastolic dysfunction. Moderately dilated left atrium. Mild pulmonic insufficiency. Mild to moderate aortic insufficiency. Mild
diffuse sessile atheroma seen in the descending aorta and distal arch.
HTN:
-monitor post-op
-ARB and Aldactone held prior to surgery. If/when resuming ARB post-op, to consider stronger ARB such as valsartan (rather than losartan). Per chart, he was on amlodipine in the past, but was stopped, but resumed at [facility], and patient with mild BLE
edema, so plan was to decrease pre-op. Continue BB. Of note, had severe allergic reaction to Hydralazine while at [facility].
HLD:
-continue Crestor
CUCO on CKD:
-improved
-monitor post-op
Obesity - chronic.
-will benefit from weight loss in skilled nursing
Physical Exam
Vital Signs/Labs
Vital Signs
Temp Pulse Resp BP Pulse Ox
96.7 F L 66 12 107/61 98
10/31/23 14:27 10/31/23 14:00 10/31/23 14:00 10/31/23 14:00 10/31/23 14:32
10/30/23 10/31/23 11/01/23
06:59 06:59 06:59
Actual Weight 99.1 kg 99 kg
10/31/23 13:18
PT 18.4 Sec (11.4-14.6) H 10/31/23 13:18
INR 1.55 10/31/23 13:18
APTT 30.8 Sec (23.4-35.0) 10/31/23 13:18
Magnesium 2.7 mg/dl (1.6-2.3) H 10/31/23 13:18
TSH 2.69 uIU/ml (0.47-4.68) 10/28/23 05:58
Physical Exam
Constitutional: No acute distress
Cardiovascular: Rhythm & rate is regular
Respiratory: Lungs clear to auscul. and Other (ventiluated/intubated)
Other: Skin (midsternal incision dressing CDI)
Data Reviewed
-
Date of Service: October 31, 2023
EKG: Tracing Personally Visualized and interpreted and Other
[2023-10-31 15:10] LABS: Glucose - Point of Care 108 mg/dl (70-99)
[2023-10-31] MEDS: MAGNESIUM OXIDE PO (15:44)
[2023-10-31] MEDS: ASPIR LOW (ENTERIC COATED) PO (15:44)
--- NOTE | 2023-10-31 15:45 | PTCARENOTE ---
RT in room and pt placed on CPAP. ABG's due at 1610
[2023-10-31] MEDS: OFIRMEV 100 IV (15:53)
[2023-10-31] MEDS: PACERONE PO (16:16)
[2023-10-31 16:17] LABS: Glucose - Point of Care 89 mg/dl (70-99)
[2023-10-31 16:20] LABS: B.E. -3.8 mmol/L; HCO3 21.5 mmol/L (21-28); Ionized Calcium 1.31 mMOL/L (1.15-1.33); O2 Saturation % 98.4 % (94-98); PCO2 39 mmHg (35-48); PO2 97 mmHg (83-108); Sodium 135 mMOL/L (136-145); pH 7.35 (7.35-7.45)
--- NOTE | 2023-10-31 16:31 | PTCARENOTE ---
ABG's reviewed. RT at bedside. Pt extubated at 1630. Pt placed on 6L NC.
--- NOTE | 2023-10-31 16:34 | RESPNOTE ---
Respiratory: patient extubated @ 1630 without incident. On 6 LPM nasal cannula SpO2 97%. No stridor no wheezes.
[2023-10-31 17:01] LABS: Glucose - Point of Care 104 mg/dl (70-99)
[2023-10-31 17:09] LABS: Hematocrit 26.5 % (39.0-52.0); Hemoglobin 9.4 g/dL (13.0-18.0); Platelet Count 130 10^3/uL (130-400)
[2023-10-31] MEDS: LR 500 IV (17:24)
[2023-10-31 18:07] LABS: Glucose - Point of Care 117 mg/dl (70-99)
[2023-10-31] MEDS: LOW STRENGTH ASPIRIN 81 MG PO (18:12)
[2023-10-31] MEDS: SENOKOT-S PO (19:50)
[2023-10-31] MEDS: ANCEF 5 IV (19:53)
[2023-10-31 20:02] LABS: Glucose - Point of Care 111 mg/dl (70-99)
[2023-10-31] MEDS: SODIUM BICARBONATE 50 MEQ IV (20:30)
--- NOTE | 2023-10-31 20:39 | PTCARENOTE ---
AAOx3; Pt follows commands and responds to verbal stimuli; Sinus rhythm with sinus bradycardia and occasional PVC's on monitor; Epicardial V-wire in place with pacer settings VVI 30/10/0.8; Pt weaned to 4L O2; Levo and insulin infusing see flowsheet
for details; IV Sodium Bicarbonate 50 mEq x1 dose ordered and given; see nursing documentation for further details; otherwise assessment unchanged from previous documentation.
[2023-10-31] MEDS: TYLENOL 1000 MG PO (21:59)
[2023-10-31] MEDS: NEURONTIN 100 MG PO (21:59)
[2023-10-31 22:06] LABS: Glucose - Point of Care 97 mg/dl (70-99)
--- NOTE | 2023-10-31 23:00 | PTCARENOTE ---
Received pr from midshift; pt resting comfortably in bed; Pt is AAOx4, states pain is 4/10, see MAR; NSR/SB on monitor, VSS; heart sounds audible, radial and DP pulses palpable, +1 [place], temp epicardial V-wires set to VVI rate of 30, MA of 10, and Mv
of 0.8; lungs diminished at b/l bases, spo2 96% on 4 LNC, x2 MS CT and right/left pleural CT to -20 wall suction, no air leaks, no tidaling, no crepitus; Hypoactive BS x4 quadrants, abdomen, soft non tender; pt voiding clear yellow urine via harrison
catheter; surgical sites maintained; right radial A-line, right IJ cordis/slick, and PIV all maintained, leveled, and zeroed; insulin gtt infusing; call pena within reach will continue to monitor.
[2023-10-31] MEDS: ROXICODONE 5 MG PO (23:06)
[2023-11-01] VITALS (31 sets, daily range): BP systolic 93–163; BP diastolic 44–79; PULSE 75–99; O2SAT 96–99; BMI 31.5
[2023-11-01 00:02] LABS: Glucose - Point of Care 103 mg/dl (70-99)
[2023-11-01 02:06] LABS: Glucose - Point of Care 110 mg/dl (70-99)
[2023-11-01] MEDS: FLEXERIL 5 MG PO (02:11)
--- NOTE | 2023-11-01 03:00 | PTCARENOTE ---
Pt assessment unchanged; NSR/SB on monitor, VSS; see MAR for pain management; A-line in position and reading higher than cuff BP; per CVPA, following cuff BP; call pena within reach; will continue to monitor.
[2023-11-01] MEDS: ANCEF 5 IV ×2 (03:13→11:07)
[2023-11-01 03:39] LABS: Ionized Calcium 1.19 mMOL/L (1.15-1.33)
--- NOTE | 2023-11-01 03:56 | W.PN.CT ---
Today's Communication / Plan
-
Plan:
-No major issues overnight. Hemodynamically and neurologically intact
-Weaned of Levophed gtt overnight, remains on insulin gtt per protocol
-Cont. current meds (ASA, BB, Crestor; held Amiodarone last night d/t bradycardia, will add Plavix)
-Monitor chest tube output: 2meds 170/305, R/L pleurals 195/365
-D/C'd A-line and SLIC this AM @ 0430
-No swan
-Transfer to [facility] phase today once off insulin gtt
-Maintain harrison catheter another day given preop CUCO/CKD, cr this AM 1.7, was 1.4-1.5 yesterday- monitor. U/O since OR 855 mL
-Maintain cordis
-Maintain temporary PW (will cut before d/c home)
-Monitor h/h, 8.3/23.8
-OOB into chair/Ambulate
-Encourage use of IS
-Wean off of O2 as tolerated
Assessment / Plan
-
Assessment:
-S/P Median sternotomy/CABG x 4 (ANGIE to LAD, GSV to OM2, sGSV to OM3 to LPDA)/Endoscopic harvest/prep of RLE GSV, by Dr. Anderson, 10/31/23, pod#1
-Severe multivessel CAD transfer from [facility]
-LVEF 55% per intraop JONY
-Moderate dilated left atrium
-Mild pulmonic insufficiency
-Mild to moderate AI
-Bradycardia
-HTN
-Hyperlipidemia
-Class 1 obesity (BMI 31.3)
-Prediabetes (hgb A1C 5.8)
-Recent CUCO @ [facility] (cr 2.48)
-CKD3a
-Chronic anemia
-Hx Prostate Ca S/p XRT
-OA
-S/p R TKR
-Acute blood loss Anemia on chronic anemia (transfused 2u PRBCs intraop)
-Acute postop atelectasis/pleural effusion
-Acute postop hypovolemia with subsequent hypervolemia
Discussed patient care with: Cardiology, Nursing, Respiratory Therapy, Pharmacy and Care Team
Subjective
Procedure
-S/P Median sternotomy/CABG x 4 (ANGIE to LAD, GSV to OM2, sGSV to OM3 to LPDA)/Endoscopic harvest/prep of RLE GSV, by Dr. Anderson, 10/31/23
-
Date of Service: November 01, 2023
Pt c/o incisional pain, otherwise feels well
Objective Data
-
PT 18.4 Sec (11.4-14.6) H 10/31/23 13:18
INR 1.55 10/31/23 13:18
APTT 30.8 Sec (23.4-35.0) 10/31/23 13:18
Vital Signs
Vital Signs
Temp Pulse Resp BP Pulse Ox
97.5 F 76 11 95/52 96
11/01/23 02:55 11/01/23 01:00 11/01/23 02:55 11/01/23 01:00 11/01/23 02:55
CT Intake/Output/Weight
10/31/23 10/31/23 11/01/23
06:59 18:59 06:59
Intake Total 240 / 360 814.5 / 1074.5 260.0 / 1074.5
Output Total 675 / 1275 600 / 1275
Balance 240 / 360 139.5 / -200.5 -340.0 / -200.5
SaO2: 95
Physical Exam
-
General: Awake, Oriented and AOx3
Cardiovascular: Regular rate & rhythm, No Murmurs, No Rub and No Gallop
Respiratory: Decreased Breath Sounds (at bases, otherwise clear)
Sternum: Stable
Incision: Clean, Dry, Intact and Dressing Intact
Extremities: Other (+trace edema)
Data Reviewed
-
Lab Results: Results Reviewed
Medications: Active Meds Reviewed
Chest X-Ray: Report Reviewed and Image Reviewed
ECG: Report Reviewed and Image Reviewed
[2023-11-01 04:11] LABS: Glucose - Point of Care 89 mg/dl (70-99)
[2023-11-01 04:17] LABS: Blood Urea Nitrogen 42 mg/dl (9-20); Calcium 8.3 mg/dl (8.4-10.2); Carbon Dioxide 23 mmol/L (22-30); Chloride 107 mmol/L (98-107); Estimated Creatinine Clearance 40 ml/min; Glucose 90 mg/dl (70-99); Magnesium 2.5 mg/dl (1.6-2.3); Sodium 134 mmol/L (135-145); eGFR 39.75
[2023-11-01 04:19] LABS: Hematocrit 23.8 % (39.0-52.0); Hemoglobin 8.3 g/dL (13.0-18.0); Mean Corp Hgb Conc. 34.9 g/dL (33.0-37.0); Mean Corpuscular Hgb 30.1 pg (27.0-31.0); Mean Corpuscular Volume 86.2 fL (80.0-94.0); Mean Platelet Volume 11.4 fL (7.4-10.4); Platelet Count 141 10^3/uL (130-400); Red Blood Cell Count 2.76 10^6/uL (4.70-6.10); Red Cell Dist. Width 13.4 % (11.5-14.5); White Blood Cell Count 16.8 10^3/uL (4.8-10.8)
--- NOTE | 2023-11-01 05:00 | PTCARENOTE ---
Pt assessment unchanged; NSR/SB on monitor, VSS; labs drawn and sent; EKG obtained; pt de-lined; CHG wipes provided; new gown and tele leads placed on pt; call pena within reach; will continue to monitor.
[2023-11-01 06:06] LABS: Glucose - Point of Care 112 mg/dl (70-99)
[2023-11-01] MEDS: TYLENOL 1000 MG PO ×3 (06:06→21:10)
[2023-11-01] MEDS: ROXICODONE 5 MG PO (06:07)
[2023-11-01 07:51] LABS: Glucose - Point of Care 106 mg/dl (70-99)
--- NOTE | 2023-11-01 08:00 | PTCARENOTE ---
pt received from previous RN, oriented, OOB in chair. SR/SA on the monitor, HR 40s-80s. +rub. INDUSTRIAL SERVICES WORKER aware. V wire in place, VVI 30/10. SBP 100s. palpable pulses, trace/+1 generalized edema. pt on 2LNC, 98% POX. lungs diminished in bases. IS encouraged,
1500ml. CTx4, no air leak or crepitus noted. pt abdomen round, s/n, denies n/v. tolerating clears. Painting in place, INDUSTRIAL SERVICES WORKER aware of UO. sternal Aquacel intact. chest tube dressing c/d/i. R groin puncture c/d/i. RLE ANU bandage in place. RIJ cordis
maintained. PIV. insulin gtt running per protocol. see worklist for VS, I&O, and assessment.
--- NOTE | 2023-11-01 08:25 | W.PN.CD ---
Today's Communication / Plan
-
continue current post op care
Impression / Plan
-
CAD - multivessel disease on cath 10/26/23:
-now s/p CABG x 4 (ANGIE to LAD, GSV to OM2, sGSV to OM3 to LPDA), 10/31/23 Dr. Anderson
-s/p 2 units PRBC's
-extubated
-CT's and Painting in place
-EKG and tele stable post-op SR (mild 1st degree AVB on EKG) and sinus renu, follow telemetry
-intra-op JONY: Overall LVEF is approximately 55% with no RWMA. Severe concentric left ventricular hypertrophy. Stage I Diastolic dysfunction. Moderately dilated left atrium. Mild pulmonic insufficiency. Mild to moderate aortic insufficiency. Mild
diffuse sessile atheroma seen in the descending aorta and distal arch.
HTN:
-monitor post-op
-ARB and Aldactone held prior to surgery. If/when resuming ARB post-op, to consider stronger ARB such as valsartan (rather than losartan). Per chart, he was on amlodipine in the past, but was stopped, but resumed at [facility], and patient with mild BLE
edema, so plan was to decrease pre-op. Continue BB. Of note, had severe allergic reaction to Hydralazine while at [facility].
HLD:
-continue Crestor
CUCO on CKD:
-improved
-monitor post-op
Obesity - chronic.
-will benefit from weight loss in detention
Physical Exam
Vital Signs/Labs
Vital Signs
Temp Pulse Resp BP Pulse Ox
97.6 F 61 18 100/48 98
11/01/23 07:45 11/01/23 08:00 11/01/23 07:45 11/01/23 08:00 11/01/23 08:00
10/31/23 11/01/23 11/02/23
06:59 06:59 06:59
Actual Weight 99 kg 99.7 kg
11/01/23 02:59
11/01/23 02:59
PT 18.4 Sec (11.4-14.6) H 10/31/23 13:18
INR 1.55 10/31/23 13:18
APTT 30.8 Sec (23.4-35.0) 10/31/23 13:18
Magnesium 2.5 mg/dl (1.6-2.3) H 11/01/23 02:59
TSH 2.69 uIU/ml (0.47-4.68) 10/28/23 05:58
Physical Exam
Constitutional: No acute distress
Cardiovascular: Rhythm & rate is regular, Pedal edema is absent, JVD pressure is normal, Systolic murmur absent and Diastolic murmur absent
Respiratory: Respiratory effort normal, Lungs clear to auscul., Wheeze Absent and Crackles Absent
Neuro/Psych: AO x 3
Data Reviewed
-
Date of Service: November 01, 2023
EKG: Other (tele sinus with sinus renu)
[2023-11-01 08:33] LABS: Glucose - Point of Care 97 mg/dl (70-99)
--- NOTE | 2023-11-01 09:07 | W.PN.INTV ---
Today's Communication / Plan
Recommendations
Pain control
Up OOB as tolerated
Encourage incentive spirometer use - 10x per hour for at least 4 hours a day
Cardiac rehab consult
Patient transferred to telemetry phase; Assembler Truck Trailer/Pulmonary service will sign off. Please reconsult if there are any additional questions/concerns, or if patient's respiratory status deteriorates.
Assessment
-
Assessment: 83-year-old male non-smoker with a past medical history of hypertension, hyperlipidemia, borderline DM and prostate cancer s/p XRT who presented from outside hospital ([facility]) for evaluation of CABG. Patient initially
admitted to [facility] on 10/22/2023 due to elevated creatinine and hyperkalemia (2.48, 6.8, respectively). These labs ordered due to intermittent diarrhea for 4 weeks. During hospitalization hydralazine was given hypertension and patient developed chest
pain with flushing. TTE done on 10/24/2023 showed preserved LVEF with no significant valvular pathology. Lexiscan stress test on 10/25/2023 showed inferior apical ischemia and then a LHC performed on 10/26/2023 showed multivessel CAD. Patient is now
here earlier in the hospital for CABG evaluation. Of note, his creatinine and potassium have both improved (1.5, 4.6 respectively). On 10/31/2023 the patient underwent CABG x 4, with chest tubes x 4 placed (bilateral pleural, inferior mediastinal +
superior mediastinal). Epicardial V wires placed but pacing not required. Upon transfer to CVICU patient was on Levophed at 3 mcg/min, Precedex 0.5 mcg/kg/hr and insulin at 0.5 units/hr. Critical care services now consulted for additional
management/recommendations.
Chronic conditions BATTERY CHECKER: Hypertension, hyperlipidemia, prostate cancer, cataracts, borderline diabetes, arthritis
Impression:
#MV�CAD s/p CABG x 4 (POD#1)
#CUCO vs CKD (unknown baseline)
#Anemia
#Thrombocytopenia
#Hyponatremia (mild)
#Leukocytosis
Plan:
Tolerated extubation
Maintain SpO2 >90-94%
Encourage incentive spirometry
Increase activity
Aspiration precautions
Incentive spirometer encouraged
prn nebulized bronchodilators
Arterial line removed; removal of R-IJ cordis per CT surgery
Pressors have been weaned
Maintain MAP>65
Replete electrolytes with K>4, Mg>2
Continue to monitor chest tube x4 output
Follow hemoglobin
Continue to follow platelet count and coags
Transfuse blood products if needed to maintain Hb>7-8g/dL, plt>50k (given patient's post-operative status)
CT surgery managing chest tubes as well
Follow blood sugar to keep BG 140-180
Insulin supplementation continues as needed
Trend sNa to keep goal 135-145
Early nutrition
Early mobilization
DVT prophylaxis
Reviewed the patient's pertinent medical records including radiographs, microbiology, laboratory evaluations, and discussion with primary team, and critical care nursing.
Patient transferred to telemetry phase; Assembler Truck Trailer/Pulmonary service will sign off. Thank you for allowing us to be involved in the care of this patient. Please reconsult if there are any additional questions/concerns, or if patient's respiratory
status deteriorates.
Total time spent today was 55 minutes for this encounter. Time includes reviewing laboratory test/imaging results, reviewing pertinent medical records, obtaining and reviewing medical history, performing an appropriate exam, ordering medications,
tests and procedures. Time also includes documentation of this encounter, coordinating patient care and communicating with other healthcare professionals. Total time does not include separately billed tests performed on this date of service.
Data:
CXR 11/01/2023:
Stable postoperative changes with interval removal of endotracheal tube and right-sided central venous catheter
There is no pneumothorax
Subjective Dataa
Subjective Data
Date of Service:
Date of Service: November 01, 2023
Chief Complaint: Assembler Truck Trailer Follow Up
Subjective:
Seen and evaluated today at bedside. Right IJ cordis in place. Denies shortness of breath. Currently on 4 L/min nasal cannula saturating 96%. Chest tubes asked for in place. Some postoperative chest pain reported but not worsening. No
abdominal pain, shortness of breath, fevers or chills.
Review of Systems
General: Other (Negative unless mentioned above)
Objective Data
Data Reviewed
Vital Signs / I&O / Oxygen:
Vital Signs
Temp Pulse Resp BP Pulse Ox
97.6 F 61 18 100/48 98
11/01/23 07:45 11/01/23 08:00 11/01/23 07:45 11/01/23 08:00 11/01/23 08:00
Intake and Output
10/31/23 11/01/23 11/02/23
06:59 06:59 06:59
Intake Total 360 / 360 1117.6 / 1117.6 12.3 / 12.3
Output Total 1525 / 1525 70 / 70
Balance 360 / 360 -407.4 / -407.4 -57.7 / -57.7
SaO2 [CPAP] 96
SaO2 [SIMV] 97
SaO2 98
Nasal Cannula flow liters per 2
minute
Physical Exam
General: Respiratory Distress (Negative) and Comfortable
HEENT: Normocephalic and Anicteric
Cardiovascular: S1-S2 and Peripheral Edema (Negative)
Respiratory: Wheeze (Negative), Crackles (Negative), Rhonchi (Negative), Non-Labored Respirations and Chest Tube (x4)
GI: Soft, Non Tender and Normal Bowel Sounds
Neurology: AO x 3 and Tremors (Negative)
Skin: Warm, Dry and Jaundice (Negative)
Labs/Micro/Reports
Lab Data
11/01/23 02:59
11/01/23 02:59
Laboratory Results
10/31/23 10/31/23
13:18 16:12
PT 18.4 H
INR 1.55
APTT 30.8
pH 7.35 7.35
pCO2 44 39
pO2 109 H 97
HCO3 24.3 21.5
O2 Delivery Level Not Reportable
Microbiology
10/27/23 17:46 Nose MRSA Screen - Final
No Methicillin Resistant Staphylococcus aureus isolated.
[2023-11-01] MEDS: CRESTOR 10 MG PO (09:10)
[2023-11-01] MEDS: BACTROBAN 2% OINTMENT 1 APPLIC NASAL ×2 (09:10→21:11)
[2023-11-01] MEDS: VITAMIN C 500 MG PO (09:10)
[2023-11-01] MEDS: PACERONE 200 MG PO ×3 (09:10→21:10)
[2023-11-01] MEDS: LOW STRENGTH ASPIRIN 81 MG PO (09:11)
[2023-11-01] MEDS: NEURONTIN 100 MG PO ×3 (09:11→21:09)
[2023-11-01] MEDS: FEOSOL 325 MG PO (09:11)
[2023-11-01] MEDS: SENOKOT-S 1 TABLET PO ×2 (09:11→19:23)
[2023-11-01] MEDS: PROTONIX 40 MG PO (09:11)
[2023-11-01] MEDS: PLAVIX 75 MG PO (09:11)
[2023-11-01] MEDS: LIDOCAINE 4% PATCH 1 PATCH TOPICAL (09:13)
[2023-11-01 10:17] LABS: Glucose - Point of Care 95 mg/dl (70-99)
--- NOTE | 2023-11-01 10:28 | W.PN.ANS.POP ---
Anesthesia Post Operative
- Anesthesia Post Op Note
Vital Signs Stable-See Nursing Note: Yes
Airway Patent: Yes
Adequate Pain Control: Yes
Change in Mental Status: No
Current Postoperative Nausea & Vomiting: No
Anesthesia Complications: No
General Anesthetic Recall: No
Unplanned Admission: No
Post Op Hydration Adequate: Yes
[2023-11-01] MEDS: ALBUMIN 5% 250 IV (11:07)
[2023-11-01] MEDS: NSS IV (12:04)
[2023-11-01 12:08] LABS: Glucose - Point of Care 117 mg/dl (70-99)
--- NOTE | 2023-11-01 12:15 | PTCARENOTE ---
pt VSS, no changes in assessment. DELIVERY CONSULTANT aware of UO, ordered Albumin given. IS encouraged. OOB in chair for lunch. pt ambulated in room w/ CR and RN.
[2023-11-01 13:16] LABS: HDL Cholesterol 33 mg/dl; LDL Cholesterol, Calculated 35 mg/dl; Total Cholesterol 78 mg/dl (50-199); Triglyceride 51 mg/dl (10-149); Very Low Density Lipoprotein 10 mg/dl (0-30)
[2023-11-01 13:41] LABS: Glucose - Point of Care 143 mg/dl (70-99)
--- NOTE | 2023-11-01 16:45 | PTCARENOTE ---
pt VSS, no changes in assessment. pt resting between care. ortho VS completed. OOB to chair for dinner. IS encouraged.
[2023-11-01 18:04] LABS: Glucose - Point of Care 146 mg/dl (70-99)
--- NOTE | 2023-11-01 20:00 | PTCARENOTE ---
Assumed care of patient at 1900. Patient found OOB in chair at time of assessment. Patient is Aox4, follows commands appropriately, moves all extremities. Lung sounds are clear and equal bilaterally, patient is on 2L via NC with saO2 at 94-95%,
patient has CTx4: R/L pleural to one atrium and 2xmeds to one atrium with red sanguineous drainage. Heart sounds have a regular rate and rhythm, patient is SR on the monitor noted to have sinus arrhythmia at times by previous RN, patient has normal
palpable pulses and trace anasarca is present. There are v wires in place with VVV settings 30/10/0.8. Patient has active BS throughout all four quadrants. There is a harrison in place draining clear yellow urine. Patient has sternal incision with
aquacell dressing that is CDI, a R groin puncture approx with surg adhesive JUDY, and R knee incision approx with surg adhesive BLUE CRABBER. Patient has R IJ cordis receiving KVO and L AC 20G PIV. VSS. Patient has no complaints at this time.
[2023-11-01] MEDS: FLEXBUMIN 50 IV (23:43)
[2023-11-02] VITALS (16 sets, daily range): BP systolic 104–165; BP diastolic 47–80; PULSE 77; O2SAT 95–96; BMI 32.0
--- NOTE | 2023-11-02 | PTCARENOTE ---
Patient reassessed. VSS. Remains SR/SB on the monitor. No c/o pain. Patient remains on 2L via NC. Assisted patient from chair to bed without incident. Patient given flexbuminx1 for low UOP.
[2023-11-02 04:03] LABS: Hematocrit 21.4 % (39.0-52.0); Hemoglobin 7.4 g/dL (13.0-18.0); Mean Corp Hgb Conc. 34.6 g/dL (33.0-37.0); Mean Corpuscular Hgb 30.2 pg (27.0-31.0); Mean Corpuscular Volume 87.3 fL (80.0-94.0); Mean Platelet Volume 11.6 fL (7.4-10.4); Platelet Count 140 10^3/uL (130-400); Red Blood Cell Count 2.45 10^6/uL (4.70-6.10); Red Cell Dist. Width 13.7 % (11.5-14.5); White Blood Cell Count 14.5 10^3/uL (4.8-10.8)
[2023-11-02 04:24] LABS: Blood Urea Nitrogen 50 mg/dl (9-20); Calcium 7.7 mg/dl (8.4-10.2); Carbon Dioxide 23 mmol/L (22-30); Chloride 104 mmol/L (98-107); Estimated Creatinine Clearance 32 ml/min; Glucose 108 mg/dl (70-99); Magnesium 2.3 mg/dl (1.6-2.3); Potassium 4.7 mmol/L (3.5-5.1); Sodium 133 mmol/L (135-145); eGFR 30.85
--- NOTE | 2023-11-02 05:11 | PTCARENOTE ---
Patient reassessed. Remains in SR/SB on the monitor. No c/o pain. AM hygiene care provided. AM labs obtained. CT PA notified of low hgb 7.4. No new orders at this time. UOP has improved following flexbumin administration. Will continue to monitor.
--- NOTE | 2023-11-02 05:44 | W.PN.CT ---
Today's Communication / Plan
-
-pod #2
-no significant issues overnight
-CT output: b/l pleur 25/135 and 2 meds 130/215 in 12/24 hrs
-UO 315/530 in 12/24 hrs
-sinus bradycardia 50s (was bradycardic preop on Coreg) - holding BB postop. po Amio continued
-appears volume overloaded on exam with oliguria- started 25% Albumin x3. Consider trial of iv Lasix this am (to give 30 min after gets Albumin)
-follow daily weights
-follow Cr -2.1 today (1.5-1.7 preop)
-follow h/h- 7.4/21.4 today (8.3/23.8 on 10/31)
-follow K
-current meds (ASA, Plavix, Amio, Crestor, Gabapentin, Lidocaine patch, Protonix). Holding BB and Mg
-encourage IS, OOB
Assessment / Plan
-
Assessment:
-S/P Median sternotomy/CABG x 4 (ANGIE to LAD, GSV to OM2, sGSV to OM3 to LPDA)/Endoscopic harvest/prep of RLE GSV, by Dr. Anderson, 10/31/23, pod#2
-POST-JONY: LVEF 55%, mild MR, mild-to-mod AI, mild PI
-Severe multivessel CAD transfer from [facility]
-LVEF 55% per intraop JONY
-Moderate dilated left atrium
-Mild pulmonic insufficiency
-Mild to moderate AI
-Bradycardia preop
-HTN
-Hyperlipidemia
-Class 1 obesity (BMI 31.3)
-Prediabetes (hgb A1C 5.8)
-Recent CUCO @ [facility] (cr 2.48) in setting of dehydration/diarrhea
-CKD3a (Cr 1.5-1.7 preop)
-Chronic anemia
-Hx Prostate Ca S/p XRT
-OA
-S/p R TKR
-Acute blood loss Anemia on chronic anemia (transfused 2u PRBCs intraop)
-Acute postop atelectasis/pleural effusion
-Acute postop hypovolemia with subsequent hypervolemia
-Acute postop hypermagnesemia - Mg held
Discussed patient care with: Nursing and Care Team
Subjective
Procedure
-S/P Median sternotomy/CABG x 4 (ANGIE to LAD, GSV to OM2, sGSV to OM3 to LPDA)/Endoscopic harvest/prep of RLE GSV, by Dr. Anderson, 10/31/23
-
Date of Service: November 02, 2023
Objective Data
-
PT 18.4 Sec (11.4-14.6) H 10/31/23 13:18
INR 1.55 10/31/23 13:18
APTT 30.8 Sec (23.4-35.0) 10/31/23 13:18
Vital Signs
Vital Signs
Temp Pulse Resp BP Pulse Ox
97.8 F 78 18 160/65 97
11/01/23 19:00 11/02/23 02:00 11/01/23 19:00 11/01/23 21:28 11/02/23 02:00
CT Intake/Output/Weight
11/01/23 11/01/23 11/02/23
06:59 18:59 06:59
Intake Total 303.1 / 1117.6 370.2 / 480.2 110 / 480.2
Output Total 850 / 1525 410 / 730 320 / 730
Balance -546.9 / -407.4 -39.8 / -249.8 -210 / -249.8
SaO2: 97
Physical Exam
-
General: Awake and AOx3
Cardiovascular: Regular rate & rhythm, No Murmurs and Rub
Respiratory: Rales (at bases b/l. No wheeze)
Sternum: Stable
Incision: Clean, Dry and Dressing Intact
Extremities: Edema +2 (had trace to +1 edema preop)
Abdomen: soft, nontender, nondistended, decreased present bowel sounds
Data Reviewed
-
Lab Results: Results Reviewed
Medications: Active Meds Reviewed
Chest X-Ray: Report Reviewed and Image Reviewed
ECG: Report Reviewed and Image Reviewed
[2023-11-02] MEDS: TYLENOL 1000 MG PO ×3 (06:00→22:10)
[2023-11-02] MEDS: FLEXBUMIN 50 IV ×2 (08:00→15:45)
[2023-11-02] MEDS: NEURONTIN 100 MG PO ×3 (08:01→22:10)
[2023-11-02] MEDS: PROTONIX 40 MG PO (08:01)
[2023-11-02] MEDS: VITAMIN C 500 MG PO (08:01)
[2023-11-02] MEDS: LASIX 40 MG IV ×2 (08:01→15:45)
[2023-11-02] MEDS: CRESTOR 10 MG PO (08:01)
[2023-11-02] MEDS: PLAVIX 75 MG PO (08:02)
[2023-11-02] MEDS: FEOSOL 325 MG PO (08:02)
[2023-11-02] MEDS: PACERONE 200 MG PO ×3 (08:02→22:10)
[2023-11-02] MEDS: LOW STRENGTH ASPIRIN 81 MG PO (08:02)
[2023-11-02] MEDS: SENOKOT-S 1 TABLET PO ×2 (08:02→19:59)
[2023-11-02] MEDS: BACTROBAN 2% OINTMENT 1 APPLIC NASAL ×2 (08:03→20:00)
[2023-11-02] MEDS: LIDOCAINE 4% PATCH TOPICAL (08:11)
--- NOTE | 2023-11-02 08:26 | PTCARENOTE ---
Addendum entered by Batsheva Lemon RN 11/02/23 08:34:
Patient oxygen saturation 95% on 2lnc.
Original Note:
Patient received from material handler 2nd shift resting oob in chair, AAO X 3, states pain controlled. NSR/SB/SA noted via cm, SaO2 @ 95% on RA. RIJ Cordis w/kvo infusing. Epicardial V-wire to pulse generator at back up rate 30bpm, no spikes noted. R and L
pleural chest tubes (Y-connected to one pleurevac), mediastinal chest tubes x 2 (Y'd to 2nd pleurevac), placed to -20cm suction w/no air leaks noted. Painting catheter to gravity. All procedural sites stable. Patient updated to plan of care for the
day, in agreement. See work list for full assessment and interventions performed.
[2023-11-02] MEDS: NSS 500 IV (09:38)
--- NOTE | 2023-11-02 10:26 | PTCARENOTE ---
Patient ambulated houser w/[facility] and RN, tolerated well. Returned to bed, pleural chest tubes d/c'd as ordered. Patient resting comfortably.
--- NOTE | 2023-11-02 10:28 | W.PN.CD ---
Today's Communication / Plan
-
remains in sinus
monitor post op anemia. Decisions regarding PRBCs being directed by Ct surgery
montior creatinine- up to 2.1
Impression / Plan
-
CAD - multivessel disease on cath 10/26/23:
-now s/p CABG x 4 (ANGIE to LAD, GSV to OM2, sGSV to OM3 to LPDA), 10/31/23 Dr. Anderson
-s/p 2 units PRBC's
-intra-op JONY: Overall LVEF is approximately 55% with no RWMA. Severe concentric left ventricular hypertrophy. Stage I Diastolic dysfunction. Moderately dilated left atrium. Mild pulmonic insufficiency. Mild to moderate aortic insufficiency. Mild
diffuse sessile atheroma seen in the descending aorta and distal arch.
- chest tubes remain intact.
Post op anemia- montior closely . Decisions regarding PRBCs being directed by Ct surgery
HTN:
-monitor post-op
-ARB and Aldactone held prior to surgery. If/when resuming ARB post-op, to consider stronger ARB such as valsartan (rather than losartan). Per chart, he was on amlodipine in the past, but was stopped, but resumed at [facility], and patient with mild BLE
edema, so plan was to decrease pre-op. Continue BB. Of note, had severe allergic reaction to Hydralazine while at [facility].
HLD: Crestor
CUCO on CKD: noted pre op and improve., Creatinine now increased post op up to 2.1 Monitor
-improved
-monitor post-op
Physical Exam
Vital Signs/Labs
Vital Signs
Temp Pulse Resp BP Pulse Ox
97.7 F 70 18 111/59 95
11/02/23 08:12 11/02/23 10:00 11/02/23 08:12 11/02/23 10:00 11/02/23 08:13
11/01/23 11/02/23 11/03/23
06:59 06:59 06:59
Actual Weight 99.7 kg 101.2 kg
11/02/23 03:15
11/02/23 03:15
PT 18.4 Sec (11.4-14.6) H 10/31/23 13:18
INR 1.55 10/31/23 13:18
APTT 30.8 Sec (23.4-35.0) 10/31/23 13:18
Magnesium 2.3 mg/dl (1.6-2.3) 11/02/23 03:15
Triglycerides Cancelled 11/01/23 09:39
LDL Cholesterol, Calc Cancelled 11/01/23 09:39
VLDL Cholesterol, Calc Cancelled 11/01/23 09:39
HDL Cholesterol Cancelled 11/01/23 09:39
TSH 2.69 uIU/ml (0.47-4.68) 10/28/23 05:58
Physical Exam
Constitutional: No acute distress
Cardiovascular: Rhythm & rate is regular
Respiratory: Wheeze Absent, Rhonchi Absent and Other (chest tubes intact)
GI: Soft, Non tender, Normal bowel sounds and Other
Neuro/Psych: Alert, Oriented and AO x 3
Other: Skin
Data Reviewed
-
Date of Service: November 02, 2023
Medical Decision Making: Reviewed Test Results
Echo: Report Reviewed by me
Medical Tests (PFT, Pathology etc): Report Reviewed by me
Labs: Labs Reviewed by me
--- NOTE | 2023-11-02 11:11 | CM ---
Reviewed chart. Met with Mr. Sue to review discharge plans. He states he is feeling better. He states he has been up ambulating. We reviewed a home visit by the Cardiothoracic Transitional Care Nurse. He is agreeable to a home visit. Prior to
admission he resides with his spouse in a two story home with two steps to enter. He has a full flight of steps to get to bedroom. He hash a full bathroom on the first floor. He has a rolling walker at home. His spouse will be home to assist in
his care if needed. Medical work-up in progress. The discharge plan is to return home with his spouse and a home visit by the Cardiothoracic Transitional Care Nurse when medically stable.
--- NOTE | 2023-11-02 12:00 | PTCARENOTE ---
VS obtained, assessment stable. Patient w/visitor at bedside.
--- NOTE | 2023-11-02 15:53 | PTCARENOTE ---
VS obtained, assessment stable. Patient remains oob in chair, states pain controlled.
[2023-11-02] MEDS: ZOFRAN 4 MG IV (17:48)
--- NOTE | 2023-11-02 20:00 | PTCARENOTE ---
[facility]; pt is resting comfortably in chair; pt is AAOx4, denies pain; NSR on monitor, VSS; heart sounds audible, radial and DP pulses palpable, +1 [place], temp epicardial V-wire insulated; lungs diminished at b/l bases, spo2 is 93%
on 1 LNC, x2 MS CT to -20 wall suction, no air leaks, no tidaling, no crepitus; + bs x4 quadrants, abdomen soft non tender; pt voiding clear yellow via harrison catheter; surgical sites maintained; right IJ cordis and PIV maintained; call pena within
reach; will continue to monitor.
[2023-11-03] VITALS (11 sets, daily range): BP systolic 108–168; BP diastolic 50–60; PULSE 81; O2SAT 94–95; BMI 31.3
--- NOTE | 2023-11-03 | PTCARENOTE ---
Pt assessment unchanged; NSR on monitor; VSS; pt resting comfortably in bed; call pena within reach; will continue to monitor.
--- NOTE | 2023-11-03 04:00 | PTCARENOTE ---
Pt assessment unchanged; VSS; NSR on monitor; labs drawn and sent; call pena within reach; will continue to monitor.
[2023-11-03 04:05] LABS: Hemoglobin 7.4 g/dL (13.0-18.0); Mean Corp Hgb Conc. 33.6 g/dL (33.0-37.0); Mean Corpuscular Hgb 30.3 pg (27.0-31.0); Mean Corpuscular Volume 90.2 fL (80.0-94.0); Platelet Count 132 10^3/uL (130-400); Red Blood Cell Count 2.44 10^6/uL (4.70-6.10); Red Cell Dist. Width 13.1 % (11.5-14.5); White Blood Cell Count 10.4 10^3/uL (4.8-10.8)
--- NOTE | 2023-11-03 04:09 | W.PN.CT ---
Today's Communication / Plan
-
-pod #3
-no significant issues overnight
-CT output: 2 meds 80/160 in 12/24 hrs
-diuresed well with bid Lasix on 11/01. UO 925/2730 in 12/24 hrs- continue
-intermittent sinus bradycardia 50s (was bradycardic preop on Coreg) - holding BB postop. po Amio continued
-follow daily weights
-follow Cr -pending today (2.1 on 11/01, 1.5-1.7 preop)
-follow h/h- 7.4/22.0 today (7.4/21.4 on 11/01, 8.3/23.8 on 10/31)
-follow K
-current meds (ASA, Plavix, Amio, Crestor, Gabapentin, Lidocaine patch, Protonix). Holding BB and Mg
-encourage IS, OOB
Assessment / Plan
-
Assessment:
-S/P Median sternotomy/CABG x 4 (ANGIE to LAD, GSV to OM2, sGSV to OM3 to LPDA)/Endoscopic harvest/prep of RLE GSV, by Dr. Anderson, 10/31/23, pod#3
-POST-JONY: LVEF 55%, mild MR, mild-to-mod AI, mild PI
-Severe multivessel CAD transfer from [facility]
-LVEF 55% per intraop JONY
-Moderate dilated left atrium
-Mild pulmonic insufficiency
-Mild to moderate AI
-Bradycardia preop
-HTN
-Hyperlipidemia
-Class 1 obesity (BMI 31.3)
-Prediabetes (hgb A1C 5.8)
-Recent CUCO @ [facility] (cr 2.48) in setting of dehydration/diarrhea
-CKD3a (Cr 1.5-1.7 preop)
-Chronic anemia
-Hx Prostate Ca S/p XRT
-OA
-S/p R TKR
-Acute blood loss Anemia on chronic anemia (transfused 2u PRBCs intraop)
-Acute postop atelectasis/pleural effusion
-Acute postop hypovolemia with subsequent hypervolemia
-Acute postop hypermagnesemia - Mg held
Discussed patient care with: Nursing and Care Team
Subjective
Procedure
-S/P Median sternotomy/CABG x 4 (ANGIE to LAD, GSV to OM2, sGSV to OM3 to LPDA)/Endoscopic harvest/prep of RLE GSV, by Dr. Anderson, 10/31/23
-
Date of Service: November 03, 2023
Objective Data
-
Lab Results
11/03/23 03:41
PT 18.4 Sec (11.4-14.6) H 10/31/23 13:18
INR 1.55 10/31/23 13:18
APTT 30.8 Sec (23.4-35.0) 10/31/23 13:18
Vital Signs
Vital Signs
Temp Pulse Resp BP Pulse Ox
97.7 F 74 16 135/60 94
11/03/23 04:00 11/03/23 04:00 11/03/23 04:00 11/03/23 04:00 11/03/23 04:00
CT Intake/Output/Weight
11/02/23 11/02/23 11/03/23
06:59 18:59 06:59
Intake Total 150 / 520.2 670 / 760 90 / 760
Output Total 555 / 1015 1895 / 2900 1005 / 2900
Balance -405 / -494.8 -1225 / -2140 -915 / -2140
SaO2: 94
Physical Exam
-
General: Awake and AOx3
Cardiovascular: Regular rate & rhythm, No Murmurs and Rub
Respiratory: Rales (at bases, no wheeze)
Sternum: Stable
Incision: Clean and Dry
Extremities: Edema +1 (appears improved past 24 hrs, R> L (s/p R EVH). DPs b/l by Doppler)
Data Reviewed
-
Lab Results: Results Reviewed
Medications: Active Meds Reviewed
Chest X-Ray: Report Reviewed and Image Reviewed
ECG: Report Reviewed and Image Reviewed
[2023-11-03 05:16] LABS: Blood Urea Nitrogen 52 mg/dl (9-20); Calcium 8.1 mg/dl (8.4-10.2); Carbon Dioxide 28 mmol/L (22-30); Chloride 98 mmol/L (98-107); Estimated Creatinine Clearance 31 ml/min; Glucose 102 mg/dl (70-99); Magnesium 2.2 mg/dl (1.6-2.3); Potassium 4.1 mmol/L (3.5-5.1); Sodium 130 mmol/L (135-145); eGFR 29.17
[2023-11-03] MEDS: TYLENOL 1000 MG PO ×2 (05:53→19:43)
--- NOTE | 2023-11-03 07:32 | W.PN.CD ---
Today's Communication / Plan
-
Doing well
Increase activity after CTs out
Impression / Plan
-
CAD - multivessel disease on cath 10/26/23:
-now s/p CABG x 4 (ANGIE to LAD, GSV to OM2, sGSV to OM3 to LPDA), 10/31/23 Dr. Anderson
-s/p 2 units PRBC's
-intra-op JONY: Overall LVEF is approximately 55% with no RWMA. Severe concentric left ventricular hypertrophy. Stage I Diastolic dysfunction. Moderately dilated left atrium. Mild pulmonic insufficiency. Mild to moderate aortic insufficiency. Mild
diffuse sessile atheroma seen in the descending aorta and distal arch.
- chest tubes remain intact. Two removed yest and plan for removal of last two today
Post op anemia- Hb 7.3 no change vs yesterday. Decisions regarding PRBCs being directed by Ct surgery
HTN:
-monitor post-op. currently well controlled
-ARB and Aldactone held prior to surgery. If/when resuming ARB post-op, to consider stronger ARB such as valsartan (rather than losartan). Per chart, he was on amlodipine in the past, but was stopped, but resumed at [facility], and patient with mild BLE
edema, so plan was to decrease pre-op. Continue BB. Of note, had severe allergic reaction to Hydralazine while at [facility].
HLD: Crestor
CUCO on CKD: noted pre op and improve., Creatinine now increased post op up to 2.2 Monitor
-monitor post-op
Physical Exam
Vital Signs/Labs
Vital Signs
Temp Pulse Resp BP Pulse Ox
97.7 F 74 16 135/60 94
11/03/23 04:00 11/03/23 04:00 11/03/23 04:00 11/03/23 04:00 11/03/23 04:13
11/02/23 11/03/23 11/04/23
06:59 06:59 06:59
Actual Weight 223 lb 1.725 oz 218 lb 0.595 oz
11/03/23 03:41
11/03/23 03:41
PT 18.4 Sec (11.4-14.6) H 10/31/23 13:18
INR 1.55 10/31/23 13:18
APTT 30.8 Sec (23.4-35.0) 10/31/23 13:18
Magnesium 2.2 mg/dl (1.6-2.3) 11/03/23 03:41
Triglycerides Cancelled 11/01/23 09:39
LDL Cholesterol, Calc Cancelled 11/01/23 09:39
VLDL Cholesterol, Calc Cancelled 11/01/23 09:39
HDL Cholesterol Cancelled 11/01/23 09:39
TSH 2.69 uIU/ml (0.47-4.68) 10/28/23 05:58
Physical Exam
Constitutional: No acute distress and Comfortable
EENT: Anicteric
Cardiovascular: Rhythm & rate is regular, S1S2 is normal and Murmur/rub/gallop absent
Respiratory: Respiratory effort normal, Wheeze Absent, Crackles Absent and Rhonchi Present
GI: Non tender
Neuro/Psych: AO x 3 and Motor deficits absent
Data Reviewed
-
Date of Service: November 03, 2023
--- NOTE | 2023-11-03 08:26 | PTCARENOTE ---
Assumed care of pt from previous shift RN. Sinus rhythm on tele, VSS, V wire insulated lungs diminished at bases, pulse 92 on RA, coughing and deep breathing encouraged + bowel sounds, tolerating PO intake, harrison removed at 0800 and pt is due to
void. post op dressing intact, mediastinal CT with minimal drainage. POC reviewed with the pt questions encouraged
[2023-11-03] MEDS: PLAVIX 75 MG PO (09:38)
[2023-11-03] MEDS: SENOKOT-S 1 TABLET PO ×2 (09:38→19:43)
[2023-11-03] MEDS: PACERONE 200 MG PO ×3 (09:38→19:43)
[2023-11-03] MEDS: VITAMIN C 500 MG PO (09:38)
[2023-11-03] MEDS: LOW STRENGTH ASPIRIN 81 MG PO (09:38)
[2023-11-03] MEDS: FEOSOL 325 MG PO (09:38)
[2023-11-03] MEDS: NEURONTIN 100 MG PO (09:38)
[2023-11-03] MEDS: LIDOCAINE 4% PATCH TOPICAL (09:39)
[2023-11-03] MEDS: CRESTOR 10 MG PO (09:40)
[2023-11-03] MEDS: PROTONIX 40 MG PO (09:40)
[2023-11-03] MEDS: LASIX 40 MG IV ×2 (09:40→14:25)
[2023-11-03] MEDS: BACTROBAN 2% OINTMENT 1 APPLIC NASAL ×2 (09:41→19:43)
--- NOTE | 2023-11-03 10:44 | PTCARENOTE ---
chest tubes removed as ordered pt tolerated.
--- NOTE | 2023-11-03 13:54 | PTCARENOTE ---
VSS, sinus rhythm maintained on tele. pt tolerates sitting in chair
[2023-11-03] MEDS: NSS 500 IV (14:25)
[2023-11-03] MEDS: KCL 40 MEQ PO (14:25)
[2023-11-03] MEDS: TYLENOL PO (14:26)
[2023-11-03] MEDS: FLEXBUMIN 100 IV (16:53)
[2023-11-03] MEDS: NEURONTIN PO (17:47)
--- NOTE | 2023-11-03 20:00 | PTCARENOTE ---
assumed care of pt from previous RN. pt A&Ox4, resting in chair at time of assessment. SR on tele-monitor. temp epicardial v-wires insulated. POX 93% on RA. abd s/n, +BS. pt voiding clear, yellow urine in urinal. sternal incision w/ aquacell, CDI. R
groin puncture site stable, CDI. R leg incision oozy, surrounding skin ecchymotic. R IJ cordis w/ KVO. PIV intact. plan of care discussed w/ pt, pt in agreement. pt assisted back to bed post assessment. see worklist for complete nursing assessment,
interventions, VS, and I&Os.
[2023-11-04] VITALS (15 sets, daily range): BP systolic 123–164; BP diastolic 51–74; PULSE 75; O2SAT 95; BMI 30.8
[2023-11-04] MEDS: FLEXBUMIN 100 IV ×2 (00:12→08:23)
--- NOTE | 2023-11-04 04:00 | PTCARENOTE ---
assessment remains unchanged. VSS. AM labs collected and sent.
[2023-11-04 04:57] LABS: Hemoglobin 6.9 g/dL (13.0-18.0); Mean Corp Hgb Conc. 34.5 g/dL (33.0-37.0); Mean Corpuscular Hgb 30.1 pg (27.0-31.0); Mean Corpuscular Volume 87.3 fL (80.0-94.0); Mean Platelet Volume 10.5 fL (7.4-10.4); Platelet Count 151 10^3/uL (130-400); Red Blood Cell Count 2.29 10^6/uL (4.70-6.10); Red Cell Dist. Width 13.2 % (11.5-14.5); White Blood Cell Count 8.8 10^3/uL (4.8-10.8)
[2023-11-04 05:07] LABS: Blood Urea Nitrogen 52 mg/dl (9-20); Calcium 8.1 mg/dl (8.4-10.2); Carbon Dioxide 28 mmol/L (22-30); Chloride 98 mmol/L (98-107); Estimated Creatinine Clearance 32 ml/min; Glucose 97 mg/dl (70-99); Magnesium 1.9 mg/dl (1.6-2.3); Sodium 133 mmol/L (135-145); eGFR 30.85
--- NOTE | 2023-11-04 06:00 | W.PN.CT ---
Addendum entered and electronically signed by Brandon Anderson MD 11/04/23 08:17:
I saw and examined the patient.
The PA's note was reviewed and I agree with the note.
Comment:
Looks great. Excited for potential D/C
Transfuse 1U PRBC today
Resume Coreg (1/2 home dose)
Check CBC/BMP on Tuesday
D/C planning for hopefully later today
Original Note:
Today's Communication / Plan
-
-pod #4
-no significant issues overnight
-h/h 6.9/20.0- consider 1 pRBC
-diuresing well with bid Lasix. UO 1450/2690 in 12/24 hrs
-holding BB postop. po Amio continued
-hypertensive - ? trial of low-dose BB (was on Coreg 25 bid preop)
-follow daily weights
-follow Cr - 2.1 today (2.2 on 11/02, 2.1 on 11/01, 1.5-1.7 preop)
-current meds (ASA, Plavix, Amio, Crestor, Gabapentin, Lidocaine patch, Protonix). Holding BB and Mg
-encourage IS, OOB
Assessment / Plan
-
Assessment:
-S/P Median sternotomy/CABG x 4 (ANGIE to LAD, GSV to OM2, sGSV to OM3 to LPDA)/Endoscopic harvest/prep of RLE GSV, by Dr. Anderson, 10/31/23, pod#4
-POST-JONY: LVEF 55%, mild MR, mild-to-mod AI, mild PI
-Severe multivessel CAD transfer from [facility]
-LVEF 55% per intraop JONY
-Moderate dilated left atrium
-Mild pulmonic insufficiency
-Mild to moderate AI
-Bradycardia preop
-HTN
-Hyperlipidemia
-Class 1 obesity (BMI 31.3)
-Prediabetes (hgb A1C 5.8)
-Recent CUCO @ [facility] (cr 2.48) in setting of dehydration/diarrhea
-CKD3a (Cr 1.5-1.7 preop)
-Chronic anemia
-Hx Prostate Ca S/p XRT
-OA
-S/p R TKR
-Acute blood loss Anemia on chronic anemia (transfused 2u PRBCs intraop)
-Acute postop atelectasis/pleural effusion
-Acute postop hypovolemia with subsequent hypervolemia
-Acute postop hypermagnesemia - Mg held
Discussed patient care with: Nursing and Care Team
Subjective
Procedure
-S/P Median sternotomy/CABG x 4 (ANGIE to LAD, GSV to OM2, sGSV to OM3 to LPDA)/Endoscopic harvest/prep of RLE GSV, by Dr. Anderson, 10/31/23
-
Date of Service: November 04, 2023
Objective Data
-
PT 18.4 Sec (11.4-14.6) H 10/31/23 13:18
INR 1.55 10/31/23 13:18
APTT 30.8 Sec (23.4-35.0) 10/31/23 13:18
Vital Signs
Vital Signs
Temp Pulse Resp BP Pulse Ox
98.2 F 79 16 144/64 94
11/04/23 00:00 11/04/23 00:09 11/04/23 00:00 11/04/23 00:09 11/04/23 00:00
CT Intake/Output/Weight
11/03/23 11/03/23 11/04/23
06:59 18:59 06:59
Intake Total 90 / 760 140 / 320 180 / 320
Output Total 1005 / 2900 1240 / 2090 850 / 2090
Balance -915 / -2140 -1100 / -1770 -670 / -1770
SaO2: 94
Physical Exam
-
General: Awake and AOx3
Cardiovascular: Regular rate & rhythm, No Murmurs and Rub
Respiratory: Rales (at bases, no wheeze)
Sternum: Stable
Incision: Clean and Dry
Extremities: Edema +1 (appears improved past 24 hrs, R> L (s/p R EVH). DPs b/l by Doppler)
Data Reviewed
-
Lab Results: Results Reviewed
Medications: Active Meds Reviewed
Chest X-Ray: Report Reviewed and Image Reviewed
ECG: Report Reviewed and Image Reviewed
[2023-11-04] MEDS: TYLENOL 1000 MG PO (06:11)
--- NOTE | 2023-11-04 07:55 | W.PN.CD ---
Today's Communication / Plan
-
- transfuse
- Metoprolol to Coreg
- BP monitoring in patient ad outpatient to assess need for addition of ARB (Valsartan)
Impression / Plan
-
CAD - multivessel disease on cath 10/26/23:
-now s/p CABG x 4 (ANGIE to LAD, GSV to OM2, sGSV to OM3 to LPDA), 10/31/23 Dr. Andreson
-s/p 2 units PRBC's- still anemic - transfuse today again. No active bleedig.
-intra-op JONY: Overall LVEF is approximately 55% with no RWMA. Severe concentric left ventricular hypertrophy. Stage I Diastolic dysfunction. Moderately dilated left atrium. Mild pulmonic insufficiency. Mild to moderate aortic insufficiency. Mild
diffuse sessile atheroma seen in the descending aorta and distal arch.
- chest tubes removed.
Post op anemia- Hb 6.9
- Transfuse today.
HTN:
-monitor post-op. currently well controlled
-Metoporlol is switched to Coreg.
-ARB and Aldactone held prior to surgery. If/when resuming ARB post-op, to consider stronger ARB such as valsartan (rather than losartan). Per chart, he was on amlodipine in the past, but was stopped, but resumed at [facility], and patient with mild BLE
edema, so plan was to decrease pre-op. Continue BB. Of note, had severe allergic reaction to Hydralazine while at [facility].
HLD: Crestor
CUCO on CKD: noted pre op and improve., Creatinine now increased post op up to 2.2 Monitor
-monitor post-op
Dispo
-Possible discharge after transfusion today
- BP monitoring at home and addition of Valsartan as needed.
Physical Exam
Vital Signs/Labs
Vital Signs
Temp Pulse Resp BP Pulse Ox
97.6 F 91 16 146/57 93
11/04/23 04:00 11/04/23 06:00 11/04/23 04:00 11/04/23 04:31 11/04/23 04:31
11/03/23 11/04/23 11/05/23
06:59 06:59 06:59
Actual Weight 98.9 kg 97.4 kg
11/04/23 04:30
11/04/23 04:30
PT 18.4 Sec (11.4-14.6) H 10/31/23 13:18
INR 1.55 10/31/23 13:18
APTT 30.8 Sec (23.4-35.0) 10/31/23 13:18
Magnesium 1.9 mg/dl (1.6-2.3) 11/04/23 04:30
Triglycerides Cancelled 11/01/23 09:39
LDL Cholesterol, Calc Cancelled 11/01/23 09:39
VLDL Cholesterol, Calc Cancelled 11/01/23 09:39
HDL Cholesterol Cancelled 11/01/23 09:39
TSH 2.69 uIU/ml (0.47-4.68) 10/28/23 05:58
Physical Exam
Constitutional: No acute distress and Comfortable
EENT: Anicteric and Moist mucous membranes
Cardiovascular: Rhythm & rate is regular, Pedal edema is absent, JVD pressure is normal and Systolic murmur present
Respiratory: Respiratory effort normal, Lungs clear to auscul. and Rhonchi Absent
GI: Soft, Non tender and Normal bowel sounds
Neuro/Psych: Alert, Oriented and AO x 3
Data Reviewed
-
Date of Service: November 04, 2023
Medical Decision Making: Reviewed Test Results, Independent Historian Assessment and Test Interpretation
EKG: Tracing Personally Visualized and interpreted
Echo: Report Reviewed by me
X-Ray/CT/US/MRI/NUC/PET: Image Personally Visualized and interpreted
Labs: Labs Reviewed by me
Old Records: Reviewed
Critical Care Time (in minutes): 35
[2023-11-04] MEDS: COREG 12.5 MG PO (08:17)
[2023-11-04] MEDS: BACTROBAN 2% OINTMENT 1 APPLIC NASAL (08:17)
[2023-11-04] MEDS: CRESTOR 10 MG PO (08:19)
[2023-11-04] MEDS: PROTONIX 40 MG PO (08:20)
[2023-11-04] MEDS: SENOKOT-S 1 TABLET PO (08:20)
[2023-11-04] MEDS: PLAVIX 75 MG PO (08:21)
[2023-11-04] MEDS: VITAMIN C 500 MG PO (08:21)
[2023-11-04] MEDS: FEOSOL 325 MG PO (08:21)
[2023-11-04] MEDS: LOW STRENGTH ASPIRIN 81 MG PO (08:22)
[2023-11-04] MEDS: PACERONE 200 MG PO (08:22)
[2023-11-04] MEDS: LIDOCAINE 4% PATCH TOPICAL (08:28)
--- NOTE | 2023-11-04 08:30 | PTCARENOTE ---
Received pt from [facility]: Pt is OOB to chair for assessment. Pt is AAOx4; NSR on Tele, + pulses palpated, +2 edema bilateral lower legs, Lungs clear on auscultation, + bowel sounds, pt voiding in bathroom, surgical sites C/D/I. Discussed plan of
day with pt. Call pena within reach.
--- NOTE | 2023-11-04 10:52 | CM ---
Reviewed chart. Met with Mr. Sue to review discharge plans. He states he is feeling well and maybe able to go home soon. He states he has been ambulating here. He states his spouse will provide transportation home. We reviewed a home visit by
the Cardiothoracic Transitional Care Nurse. He is agreeable to a home visit. Prior to admission he resides with his spouse in a two story home with two steps to enter. He has a full bathroom on each floor. He has a full flight of steps to get to
bedroom/full bathroom. He has a rolling walker at home. His spouse will be home to assist in his care if needed. Medical work-up in progress. The discharge plan is to return home with his spouse and a home visit by the Cardiothoracic
Transitional Care Nurse when medically stable.
--- NOTE | 2023-11-04 12:21 | PTCARENOTE ---
1 unit transfused without issue. Pt resting OOB in chair, call pena within reach.
--- NOTE | 2023-11-04 12:31 | W.PN.UPDATE ---
Update Note
Progress Note Update
Temporary pacing wire & grounding wire cut by me at bedside with assistance of RN.
--- NOTE | 2023-11-04 12:32 | W.DCSUMMARY ---
Addendum entered and electronically signed by PRINCE Jett 11/07/23 11:20:
CDI QUERY RESPONSE
CUCO on CKD3a
post-op Hypervolemia only
Original Note:
Discharge Summary
Discharge Data
Date of Admission: 10/27/23
Date of Discharge: 11/04/23
-
Pending Results: No
Hospital Course
Primary care physician: Les Ga
Outpatient slumber room attendant: Ben Herrera
Inpatient consultants: [facility] Cardiology
Procedures:
1. Coronary artery bypass grafting
Primary Diagnosis:
1. Coronary artery disease
Secondary Diagnoses:
1. Preoperative acute kidney injury and hyperkalemia due to dehydration
2. Preoperative normocytic anemia
3. Prostate cancer status post radiation
HPI: 83-year-old male, followed by Dr. Ben Herrera ([facility]), was transferred to [facility] for CABG evaluation on 10/27/2023 due to multivessel coronary disease noted on cardiac cath 10/26/23. Patient originally
admitted to [facility] on 10/21 due to diarrhea and weakness. Patient was diagnosed with acute kidney injury and hyperkalemia which was treated with fluids and Lokelma. Home medications of Aldactone and losartan were discontinued. Home
amlodipine was held for lower extremity edema. Potassium normalized to 4.7 and creatinine has stabilized to 1.5 on 10/29. Hemoglobin improved to 9.6 from 9.3 with reticulocyte, B12, folate, and iron studies WNL. Patient was treated with
hydralazine at [facility] and developed chest pain. Hydralazine was then discontinued. There was no prior history of anemia per patient.
Hospital course: Patient underwent CABG x 4 (ANGIE to LAD, GSV to OM2, sGSV to OM3 to LPDA) with Dr. Brandon Anderson on 10/31/2023. Patient received 2 units of packed red blood cells intraoperatively. Intraoperative JONY reported an EF of 55% with
mild�moderate AI and mild MR. Patient returned to CVICU on Levophed, Precedex, and insulin. He was extubated at 1630 the day of surgery and Levophed was weaned off later that evening. Patient was noted to have a sinus arrhythmia with heart rates
in the 40s to 80s and beta-roshan was held on postoperative day #1. Pleural chest tubes were removed and mediastinal chest drains maintained to suction. Aspirin and Plavix were initiated. On postoperative day #3, patient was diuresed with Lasix
and received 25% albumin x 3. Mediastinal chest drains were removed. Painting was discontinued and patient voided adequately. Creatinine has remained at levels 1.7-2.1. Therefore, Losartan and Aldactone will be held on discharge. On 11/02, patient had
a hemoglobin of 6.9 from 7.4 and was transfused 1 unit of PRBCs. Repeat hemoglobin posttransfusion was 8.6. Patient was asymptomatic,assessed by surgeon, and deemed stable for discharge to home. Patient will have follow-up CMP and CBC drawn by
transitional nurse on Monday 11/06 with report to Drs. Herrera and Harmeet. Temporary epicardial ventricular ground pacing wires were clipped at skin level. Predischarge chest x-ray reported clear lungs with minimal bilateral pleural effusions.
Home medication changes:
Stop Amlodipine due to leg swelling
Stop Losartan and spironolactone due to acute kidney injury
Discharge Plan
-
Patient Disposition: Home (Routine Discharge)
Discharge Diagnosis/Procedures: CAD/CABG
Condition: Good
Diet: Low Cholesterol and Low Sodium
Activity: No strenuous activity
Driving Restrictions: Not until seen by your Dr
Bathing Restrictions: OK to Shower
Blood Work: CMP/CBC on Tuesday
Other Services: Cardiac Rehab
Specialty Instructions: Weigh Daily- Call MD for wt gain/loss 3 lbs overnight/5 lbs in 1 week
Referrals:
CT Transitional Care Nurse [Outside] - in one to two days
(
The Cardiothoracic Transitional Care Nurse will call you to set up a visit in 1-2 days.)
Les Ga MD [Family Provider] - in four to six weeks (Please make an appointment in four to six weeks. )
Ben Herrera MD [Active] - 12/15/23 1:20 pm
([facility] [address]
[place] [address])
Brandon Anderson MD [Active] - 11/29/23 2:30 pm
Prescriptions:
New
ferrous sulfate [FeroSul] 325 mg (65 mg iron) Tablet
325 mg PO DAILY Qty: 30 0RF
clopidogrel 75 mg Tablet
75 mg PO DAILY Qty: 30 1RF
pantoprazole 40 mg Tablet,Delayed Release (Dr/Ec)
40 mg PO DAILY Qty: 30 1RF
acetaminophen 325 mg Tablet
650 mg PO Q4HPRN PRN (Reason: mild pain,headache,temp >101F ) Qty: 0 0RF
oxycodone 5 mg Tablet
5 mg PO Q6HPRN PRN (Reason: severe pain) Qty: 10 0RF
ascorbic acid (vitamin C) [Vitamin C] 500 mg Tablet
500 mg PO DAILY Qty: 0 0RF
Continued
carvedilol 25 mg Tablet
25 mg PO BID
rosuvastatin 10 mg Tablet
10 mg PO DAILY
aspirin 81 mg Capsule
81 mg PO DAILY
Discontinued
spironolactone 25 mg Tablet
25 mg PO DAILY
amlodipine 10 mg Tablet
10 mg PO DAILY
losartan 100 mg Tablet
100 mg PO DAILY
Discharge Orders:
Discharge Patient (As Directed); Ordered 11/04/23
Ordered By: Valeria Pulido
Care Plan Goals
Care Plan Goals:
Problem: Readiness for enhanced knowledge related to diagnosis and treatment plan
Goal: Understand your diagnosis and treatment plan needs, including medications if applicable.
Instructions: Know your diagnosis, underlying causes and treatment plan options, including medications if applicable. Consult with your health care team to learn about your diagnosis and treatment plan, including medications if applicable.
Discharge Date and Time
Print Language: UPPER SORBIAN
[2023-11-04] MEDS: NSS IV (12:44)
[2023-11-04 14:06] LABS: Hemoglobin 8.6 g/dL (13.0-18.0); Mean Corp Hgb Conc. 34.4 g/dL (33.0-37.0); Mean Corpuscular Hgb 30.4 pg (27.0-31.0); Mean Corpuscular Volume 88.3 fL (80.0-94.0); Mean Platelet Volume 10.6 fL (7.4-10.4); Platelet Count 204 10^3/uL (130-400); Red Blood Cell Count 2.83 10^6/uL (4.70-6.10); Red Cell Dist. Width 13.1 % (11.5-14.5); White Blood Cell Count 9.6 10^3/uL (4.8-10.8)
--- NOTE | 2023-11-04 15:40 | PTCARENOTE ---
Pt assisted into shower, tolerated without issue; telemetry and INT d/c'ed; Reviewed discharge instruction with pt and . Questions answered, wheeled to car by volunteer.
--- NOTE | 2023-11-07 06:43 | PN.CDI ---
CDI
- -
CDI:
Physician Documentation Request
Admit Date: 10/27/23 17:05
Dear Doctor Jutsin,
Please review the following and provide your response in the progress notes.
Clinical Indicators:
H+P, 10/26
#...with multivessel coronary disease, preserved ejection fraction, CUCO on CKD,...
PN, 11/01
#-pod #2
#-appears volume overloaded on exam with oliguria- started 25% Albumin X3
#-Acute postop hypovolemia with subsequent hypervolemia
#Respiratory: Rales (at bases b/l. No wheeze)
PN, 11/02
#-pod #3
#-diuresed well with bid Lasix on 11/01. UO 925/2730 in 12/24 hrs- continue
#Respiratory: Rales (at bases, no wheeze)
#Extremities: Edema +1 (appears improved past 24 hrs, R> L (s/p R EVH). DPs b/l by Doppler)
Medications
Furosemide (Furosemide 40 Mg (10 Mg/Ml) 4 Ml Vial) 40 mg IV ONCE ONE
Stop: 11/02/23 08:31
Last Admin: 11/02/23 08:01 Dose: 40 mg
Furosemide (Furosemide 40 Mg (10 Mg/Ml) 4 Ml Vial) 40 mg IV ONCE ONE
Stop: 11/02/23 15:01
Last Admin: 11/02/23 15:45 Dose: 40 mg
Furosemide (Furosemide 40 Mg (10 Mg/Ml) 4 Ml Vial) 40 mg IV NOW STA
Stop: 11/03/23 06:58
Last Admin: 11/03/23 09:40 Dose: 40 mg
Furosemide (Furosemide 40 Mg (10 Mg/Ml) 4 Ml Vial) 40 mg IV ONCE ONE
Stop: 11/03/23 14:01
Last Admin: 11/03/23 14:25 Dose: 40 mg
Selected Entries
11/02/23
06:00 11/03/23
06:00 11/04/23
06:00
Body Mass Index (BMI) 32.0 31.3 30.8
Please provide further specificity regarding the most likely condition/diagnosis evaluated, treated or monitored.
Acute CHF(specify type diastolic , systolic, combined, etc.)
Acute on Chronic CHF(please specify)
Hypervolemia only
Other (please specify)
Use of terms such as suspected, likely, concern for, or probable (associated with a specific diagnosis that is being evaluated, monitored, or treated as if it exists) are acceptable and can be coded in the inpatient setting, when documented at the
time of discharge.
Thank you,
Essie Brady RN BSN CCDS
CDI Specialist
please contact via tiger text
Please use your independent medical judgment in providing your response.
--- NOTE | 2023-11-07 07:06 | PN.CDI ---
CDI
- -
CDI:
Physician Documentation Request
Admit Date: 10/27/23 17:05
Dear Doctor Justin,
Please review the following and provide your response in the progress notes.
Clinical Indicators:
H+P, 10/26
#...multivessel coronary disease, preserved ejection fraction, CUCO on CKD, and hyperkalemia
PN, 11/01
#-appears volume overloaded on exam with oliguria-....
-follow Cr -2.1 today (1.5-1.7 preop)
PN,11/02
#-follow Cr -pending today (2.1 on 11/01, 1.5-1.7 preop)
#-Recent CUCO @ [facility] (cr 2.48) in setting of dehydration/diarrhea
#-CKD3a (Cr 1.5-1.7 preop)
Laboratory Tests
10/28/23 10/29/23 10/30/23
05:58 04:35 04:23
Creatinine 1.6 H 1.7 H 1.5 H
eGFR 42.75 39.75 46.19
10/31/23 10/31/23 11/01/23
04:59 13:18 02:59
Creatinine 1.5 H 1.4 H 1.7 H
eGFR 46.19 39.75
11/02/23 11/03/23 11/04/23
03:15 03:41 04:30
Creatinine 2.1 H 2.2 H 2.1 H
eGFR 30.85 29.17 30.85
Please clarify which of the following accurately represents the patient's renal status:
CUCO with suspected ATN on CKD 3a
CUCO on CKD 3a only
Other(please specify)
Criteria for CUCO*
1 Increase in serum creatinine by > or = to 0.3 mg/dL (> or = to 26.5 micromol/L) within 48 hours, OR
2 Increase in serum creatinine to > or = to 1.5 times baseline, which is known or presumed to have occurred within 7 days, OR
3 Urine volume < 0.5 nL/kg/hour for six hours
Stages of Chronic Kidney Disease*
Level Description GFR
G1 Normal or High >90
G2 Mildly decreased 60-89
G3a Mildly to moderately decreased 45-59
G3b Moderately to severely decreased 30-44
G4 Severely decreased 15-29
G5 Kidney failure <15
Use of terms such as suspected, likely, concern for, or probable (associated with a specific diagnosis that is being evaluated, monitored, or treated as if it exists) are acceptable and can be coded in the inpatient setting, when documented at the
time of discharge.
Thank you,
Essie Brady RN BSN CCDS
CDI Specialist
please contact via tiger text
Please use your independent medical judgment in providing your response.
*Source: Kidney Disease: Improving Global Outcomes (KDIGO) 2012
== END 2023-11-04 15:46 | disposition home or self-care (01) | DRG 236 ==
LOC: CVICU 17:05
PROVIDERS: Anesthesiology; Clinical Nurse Specialist Acute Care; Nurse Practitioner; ADMITTING PHYSICIAN Thoracic Surgery (Cardiothoracic Vascular Surgery); CONSULT PHYSICIAN Internal Medicine Critical Care Medicine; FAMILY PHYSICIAN Internal Medicine; OTHER PHYSICIAN Internal Medicine Cardiovascular Disease
PROC: 02100ZC Bypass Coronary Artery, One Artery from Thoracic Artery, Open Approach (ICD-10-PCS; 2023-10-31)
PROC: 5A1221Z Performance of Cardiac Output, Continuous (ICD-10-PCS; 2023-10-31)
PROC: 06BP4ZZ Excision of Right Saphenous Vein, Percutaneous Endoscopic Approach (ICD-10-PCS; 2023-10-31)
PROC: 021209W Bypass Coronary Artery, Three Arteries from Aorta with Autologous Venous Tissue, Open Approach (ICD-10-PCS; 2023-10-31)
PROC: B24BZZ4 Ultrasonography of Heart with Aorta, Transesophageal (ICD-10-PCS; 2023-10-31)
DX: I25.110 Atherosclerotic heart disease of native coronary artery with unstable angina pectoris (principal); N17.9 Acute kidney failure, unspecified; D62 Acute posthemorrhagic anemia; J98.11 Atelectasis; J90 Pleural effusion, not elsewhere classified; E87.1 Hypo-osmolality and hyponatremia; I12.9 Hypertensive chronic kidney disease with stage 1 through stage 4 chronic kidney disease, or unspecified chronic kidney disease; E78.00 Pure hypercholesterolemia, unspecified; N18.31 Chronic kidney disease, stage 3a; E87.5 Hyperkalemia; M19.90 Unspecified osteoarthritis, unspecified site; I35.1 Nonrheumatic aortic (valve) insufficiency; E66.9 Obesity, unspecified; D63.1 Anemia in chronic kidney disease; E86.0 Dehydration; R73.03 Prediabetes; R00.1 Bradycardia, unspecified; E83.41 Hypermagnesemia; E86.1 Hypovolemia; E87.70 Fluid overload, unspecified; D69.6 Thrombocytopenia, unspecified; Z68.30 Body mass index [BMI] 30.0-30.9, adult; Z79.82 Long term (current) use of aspirin; Z79.899 Other long term (current) drug therapy; Z82.49 Family history of ischemic heart disease and other diseases of the circulatory system; Z85.46 Personal history of malignant neoplasm of prostate; Z92.3 Personal history of irradiation
CPT/HCPCS: 71045; 71046; 71250; 80048; 80053; 80061; 81003; 81015; 82330; 82565; 82607; 82728; 82746; 82805; 82947; 82962; 83036; 83550; 83735; 84132; 84302; 84443; 84520; 85014; 85018; 85025; 85027; 85045; 85049; 85610; 85730; 86850; 86900; 86901; 86920; 87070; 93005; 93306; 93312; 93320; 93325; 93880; P9016; P9045; P9047